=== PATIENT | female | born 1980 | race Caucasian/White ===

== ENCOUNTER 2018-10-29 20:27 | Emergency (ER) | payer OTHER ==
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
[2018-10-29] MEDS ORDERED: Iopamidol 755 Mg/ML 100 ML Bottle IVPUSH ONE (20:50)
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
[2018-10-29] MEDS ORDERED: Ketorolac 30 MG/ML SDV IVPUSH ONE (21:26)
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
[2018-10-29 21:52] LABS: CHLORIDE,CL 103 mmol/L (98-107); SODIUM,NA 140 mmol/L (136-145)
== END 2018-10-29 22:20 | disposition home or self-care (01) ==
LOC: MW.ED 20:27
DX: S00.93XA Contusion of unspecified part of head, initial encounter (principal); M25.511 Pain in right shoulder; M54.5 Low back pain; M54.2 Cervicalgia; V89.2XXA Person injured in unspecified motor-vehicle accident, traffic, initial encounter
CPT/HCPCS: 36415; 70450; 71260; 72125; 72128; 72131; 73030; 74177; 80053; 82553; 84484; 85025; 93005; 96374; 99284; J1885; Q9967

== ENCOUNTER 2020-01-08 20:00 | Emergency (ER) | payer MEDICAID ==
[2020-01-08] MEDS ORDERED: Sodium Chloride 0.9% 10 ML Syringe FLUSH PRN (20:18)
[2020-01-08] MEDS ORDERED: Sodium Chloride 0.9% 2.5 ML Syringe FLUSH PRN (20:18)
[2020-01-08] MEDS ORDERED: Adenosine 6 MG/2 ML SDV IVPUSH ONE ×2 (20:32→20:33)
[2020-01-08] MEDS ORDERED: Metoprolol Tartrate 50 MG Tab PO ONE (20:35)
--- NOTE | 2020-01-08 20:35 | EDM.PDOC ---
ED HPI GENERAL MEDICAL PROBLEM - General Stated Complaint: CHEST PAIN Time Seen by Provider: 01/08/20 20:07 Source of Information: Reports: Patient History Limitations: Reports: No Limitations - History of Present Illness INITIAL COMMENTS - FREE TEXT/NARRATIVE: Presents reporting palpitations. States that she had just finished playing softball had stopped at a restaurant for dinner. Sudden onset of fluttering in her chest and then palpitations. Accompanied by a mild left chest pain. She states that over the last 4 years she has had numerous episodes of palpitations usually short-lived. She has had 4 or 5 occasions when the episodes precipitated chest pain. All of her episodes resolved without intervention in 5 to 10 minutes. She has never sought medical evaluation. The patient states that she drinks quite a bit of caffeine in a day including for a four-shot espresso, coffee and diet Pepsi throughout the day. [id number] smoking history. 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 Denies any other medical problems except obesity. - Related Data Allergies Allergy/AdvReac Type Severity Reaction Status Date / Time No Known Allergies Allergy Verified 10/29/18 21:01 Home Meds: Home Meds Metoprolol Succinate [Toprol XL 50mg] 50 mg PO DAILY #30 tab.er 01/08/20 [Rx] Past Medical History - Past Health History Medical/Surgical History: Denies Medical/Surgical History Psychiatric History: Reports: None Hematologic History: Reports: None Immunologic History: Reports: None Oncologic (Cancer) History: Reports: None - Infectious Disease History Infectious Disease History: Reports: None - Past Surgical History Head Surgeries/Procedures: Reports: None Social & Family History - Family History Family Medical History: Noncontributory - Caffeine Use Caffeine Use: Reports: Coffee ED ROS GENERAL - Review of Systems Review Of Systems: Comprehensive ROS is negative, except as noted in HPI. ED EXAM, GENERAL - Physical Exam Exam: See Below Exam Limited By: No Limitations General Appearance: Alert, Mild Distress (Due to symptoms) Ears: Normal External Exam Nose: Normal Inspection Throat/Mouth: Normal Inspection Head: Atraumatic, Normocephalic Neck: Normal Inspection Respiratory/Chest: No Respiratory Distress, Lungs Clear, Normal Breath Sounds Cardiovascular: Normal Peripheral Pulses, No Murmur, Tachycardia, Other (Regular ) GI/Abdominal: Soft Back Exam: Normal Inspection Extremities: Normal Inspection Neurological: Alert, Oriented, Normal Cognition Psychiatric: Normal Affect, Normal Mood, Other (Chatty, pleasent) Skin Exam: Warm, Dry, Intact, Normal Color, No Rash Lymphatic: No Adenopathy Course - Orders/Labs/Meds Orders: Active Orders 24 hr Category Date Time Status Cardiac Monitoring [RC] . DIRECTED Care 01/08/20 20:18 Active EKG Documentation Completion [RC] STAT Care 01/08/20 20:18 Active Pulse Oximetry [RC] ASDIRECTED Care 01/08/20 20:18 Active CXR [Chest 1V Frontal] [CR] Stat Exams 01/08/20 20:19 Stop Req COMPREHENSIVE METABOLIC PN,CMP [CHEM] Stat Lab 01/08/20 20:05 Received TROPONIN I [CHEM] Stat Lab 01/08/20 20:05 Received Sodium Chloride 0.9% [Saline Flush] Med 01/08/20 20:18 Active 10 ml FLUSH ASDIRECTED PRN Sodium Chloride 0.9% [Saline Flush] Med 01/08/20 20:18 Active 2.5 ml FLUSH ASDIRECTED PRN Saline Lock Insert [OM.PC] Stat Oth 01/08/20 20:18 Ordered Medication Orders Sodium Chloride (Saline Flush) 10 ml FLUSH ASDIRECTED PRN PRN Reason: Keep Vein Open Sodium Chloride (Saline Flush) 2.5 ml FLUSH ASDIRECTED PRN PRN Reason: Keep Vein Open Labs: Laboratory Tests 01/08/20 Range/Units 20:05 WBC 11.80 H (4.0-11.0) K/uL RBC 5.06 (4.30-5.90) M/uL Hgb 15.4 (12.0-16.0) g/dL Hct 44.5 (36.0-46.0) % MCV 87.9 (80.0-98.0) fL MCH 30.4 (27.0-32.0) pg MCHC 34.6 (31.0-37.0) g/dL RDW Std Deviation 44.1 (28.0-62.0) fl RDW Coeff of Simona 14 (11.0-15.0) % Plt Count 324 (150-400) K/uL MPV 9.10 (7.40-12.00) fL Neut % (Auto) 57.5 (48.0-80.0) % Lymph % (Auto) 32.0 (16.0-40.0) % Porter % (Auto) 6.8 (0.0-15.0) % Eos % (Auto) 3.3 (0.0-7.0) % Baso % (Auto) 0.4 (0.0-1.5) % Neut # (Auto) 6.8 H (1.4-5.7) K/uL Lymph # (Auto) 3.8 H (0.6-2.4) K/uL Porter # (Auto) 0.8 (0.0-0.8) K/uL Eos # (Auto) 0.4 (0.0-0.7) K/uL Baso # (Auto) 0.1 (0.0-0.1) K/uL Nucleated RBC % 0.0 /100WBC Nucleated RBCs # 0 K/uL Meds: Medications Generic Name Dose Route Start Last Admin Trade Name Freq PRN Reason Stop Dose Admin Sodium Chloride 10 ml 01/08/20 20:18 Saline Flush FLUSH ASDIRECTED PRN Keep Vein Open Sodium Chloride 2.5 ml 01/08/20 20:18 Saline Flush FLUSH ASDIRECTED PRN Keep Vein Open - Re-Assessments/Exams Free Text/Narrative Re-Assessment/Exam: 01/08/20 21:09 SVT was easily ablated with 12 mg of IV adenosine. Chest pain resolved. No recurrence of symptoms. Normal sinus rhythm without ectopy or morphologic changes Departure - Departure Time of Disposition: 21:10 Disposition: Home, Self-Care 01 Condition: Good Clinical Impression: SVT (supraventricular tachycardia) Referrals: Royal Conn MD [Physician] - Additional Instructions: The following information is given to patients seen in the emergency department who are being discharged to home. This information is to outline your options for follow-up care. We provide all patients seen in our emergency department with a follow-up referral. The need for follow-up, as well as the timing and circumstances, are variable depending upon the specifics of your emergency department visit. If you don't have a primary care physician on staff, we will provide you with a referral. We always advise you to contact your personal physician following an emergency department visit to inform them of the circumstance of the visit and for follow-up with them and/or the need for any referrals to a consulting specialist. The emergency department will also refer you to a specialist when appropriate. This referral assures that you have the opportunity for follow-up care with a specialist. All of these measure are taken in an effort to provide you with optimal care, which includes your follow-up. Under all circumstances we always encourage you to contact your private physician who remains a resource for coordinating your care. When calling for follow-up care, please make the office aware that this follow-up is from your recent emergency room visit. If for any reason you are refused follow-up, please contact the [facility] Emergency Department at and asked to speak to the emergency department charge nurse. 1. Referral has been put into Dr. Senia MD, Cardiology (Goes by Dr. Spears). Please call his office in the am to schedule your appointment. Tell his office that you have been seen in the ER and a referral has been sent. 2. Take your medication once daily starting tomorrow. This medication can cause fatigue and dizziness when you first start taking it. In addition, your heart rate will likely run lower. 3. You must cut down on caffeine and then wean off completely. 4. Work on quitting smoking. 5. You will need to establish care with a primary provider. In [facility] or [facility]. [place] or [place] are other options. 6. If your palpitating and rapid heart beat recur, try holding your breath, bearing down like having a bowel movement or coughing. Sometimes this will slow down the heart rate naturally. 7. Return promptly to the ER for chest pain, shortness of breath or other concerning symptoms. - My Orders Last 24 Hours: My Active Orders 01/08/20 20:05 COMPREHENSIVE METABOLIC PN,CMP [CHEM] Stat TROPONIN I [CHEM] Stat 01/08/20 20:18 Cardiac Monitoring [RC] . DIRECTED EKG Documentation Completion [RC] STAT Pulse Oximetry [RC] ASDIRECTED Sodium Chloride 0.9% [Saline Flush] 10 ml FLUSH ASDIRECTED PRN Sodium Chloride 0.9% [Saline Flush] 2.5 ml FLUSH ASDIRECTED PRN Saline Lock Insert [OM.PC] Stat 01/08/20 20:19 CXR [Chest 1V Frontal] [CR] Stat - Assessment/Plan Last 24 Hours: My Active Orders 01/08/20 20:05 COMPREHENSIVE METABOLIC PN,CMP [CHEM] Stat TROPONIN I [CHEM] Stat 01/08/20 20:18 Cardiac Monitoring [RC] . DIRECTED EKG Documentation Completion [RC] STAT Pulse Oximetry [RC] ASDIRECTED Sodium Chloride 0.9% [Saline Flush] 10 ml FLUSH ASDIRECTED PRN Sodium Chloride 0.9% [Saline Flush] 2.5 ml FLUSH ASDIRECTED PRN Saline Lock Insert [OM.PC] Stat 01/08/20 20:19 CXR [Chest 1V Frontal] [CR] Stat
[2020-01-08 20:43] LABS: BLOOD UREA NITROGEN,BUN 26 mg/dL (7.0-18.0); CARBON DIOXIDE,CO2 25.5 mmol/L (21.0-32.0); CHLORIDE,CL 102 mmol/L (98-107); GLUCOSE RANDOM 109 mg/dL (74-106); POTASSIUM,K 4.1 mmol/L (3.5-5.1); SODIUM,NA 138 mmol/L (136-145)
[2020-01-08] MEDS ORDERED: Sodium Chloride 0.9% 1,000 ML IV ONE (20:56)
--- NOTE | 2020-01-08 22:23 | PCM.SN.2 ---
- Free Text/Narrative Note: Upon review of the patients seen today in the emergency department, I discovered that my name was attached to this patient care episode. I was not involved with this patient's emergency department encounter. The patient was seen independently by the nurse practitioner Madalyn Lee. My name is attached to the chart in error. I did not have any [id number] contact with the patient, nor was I involved with the medical decision making, treatment planning, or discharge planning. PRESCHOOL EDUCATION DIRECTOR Madalyn Lee saw this patient as a licensed independent practitioner and did not request my assistance with managing the case.
== END 2020-01-08 21:35 | disposition home or self-care (01) ==
LOC: MW.ED 20:00
DX: I47.1 Supraventricular tachycardia (principal); F17.210 Nicotine dependence, cigarettes, uncomplicated; Z79.899 Other long term (current) drug therapy
CPT/HCPCS: 36415; 80053; 84484; 85025; 96361; 96374; 99285; A9270; J0153; J7030; 99284

== ENCOUNTER 2021-04-16 08:09 | Inpatient (IN) | payer MEDICAID ==
[2021-04-16] MEDS ORDERED: Sodium Chloride 0.9% 10 ML Syringe FLUSH PRN (08:38)
[2021-04-16] MEDS ORDERED: Sodium Chloride 0.9% 2.5 ML Syringe FLUSH PRN ×2 (08:38→13:47)
[2021-04-16] MEDS ORDERED: ceFAZolin 1 GM in Premix Bag 1 BAG IV ONE (08:39)
--- NOTE | 2021-04-16 08:42 | EDM.PDOC ---
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 She had pain and redness the next day and then she has gradually increased steady gradual increased pain swelling redness and heat in the right upper extremity from the upper arm to the wrist. There is edema in the hand. She feels a little lightheaded and sometimes feels feverish at home. She says she is not and she had a menstrual period with no sexual contact since that. Review of systems: As per history of present illness and below otherwise all systems reviewed and negative. Past medical history: As per history of present illness and as reviewed below otherwise noncontributory. Surgical history: As per history of present illness and as reviewed below otherwise noncontributory. Social history: No reported history of drug or alcohol abuse. Family history: As per history of present illness and as reviewed below otherwise noncontributory. Physical exam: Constitutional - well developed, well-nourished and in no acute distress HEENT - normocephalic, no evidence of trauma - external nose and mouth normal - no mass in neck and no JVD - mucosae moist EYES - full EOM, PERRL, no icterus - no evidence of inflammation, injection, or drainage Respiratory - no respiratory distress, equal bilateral expansion, lungs clear to auscultation and no abnormal lung sounds Cardiovascular -capillary refill brisk in the digits of the right upper extremity and they are warm and pink. Regular Rhythm with S1 and S2 appreciated and no murmur, gallop or rub. GI - abdomen soft without distension or organomegaly - normal bowel sounds - no guard or rebound Musculoskeletal marked swelling of the right upper extremity from the upper arm to the wrist with moderate edema of the right hand no gross deformity of long bones or joints - no tenderness, swelling or edema Neurologic -motor sensory exam intact in the distal right upper extremity. Alert and oriented times four - CN II-XII grossly intact - motor sensory and coordination symmetrically normal Psychiatric - appropriate mood and affect with normal thought content Hematologic - No petechiae or purpura - mucosa appropriate color and sclera not pale - normal nail bed color and refill Integument -warmth and heat in the right upper extremity in the areas of swelling from the upper arm to the wrist no rash or evidence of trauma - normal turgor Diagnostics: [] Therapeutics: [] Impression: [] Plan: [] Definitive disposition and diagnosis as appropriate pending reevaluation and review of above. 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: Psychiatric History: Reports: None Hematologic History: Reports: None Immunologic History: Reports: None Oncologic (Cancer) History: Reports: None - Infectious Disease History Infectious Disease History: Reports: None - Past Surgical History Head Surgeries/Procedures: Reports: None Female Surgical History: Reports: D&C Social & Family History - Family History Family Medical History: No Pertinent Family History - Tobacco Use Second Hand Smoke Exposure: No - Caffeine Use Caffeine Use: Reports: None - Recreational Drug Use Recreational Drug Use: Yes Drug Use in Last 12 Months: Yes Recreational Drug Type: Reports: Marijuana/Hashish, Methamphetamine ED ROS GENERAL - Review of Systems Review Of Systems: Comprehensive ROS is negative, except as noted in HPI. ED EXAM, SKIN/RASH Exam: See Below Text/Narrative:: Physical exam is in the HPI Course - Vital Signs Text/Narrative:: 30 a.m. there is a hematoma at the site of the venipuncture. It is perhaps becoming an abscess. Patient understands that the best medicine for staph coverage would be vancomycin but must be given parenterally. She would rather switch to Bactrim or doxy for staph coverage and go home. She insists she will come back immediately if she gets worse or within 2 days if she does not improve. She also has no signs of compartment syndrome at this time and I explained the signs for compartment syndrome and that she needs immediate return if that happens. I also explained to this patient that if she had a compartment syndrome where she needed an abscess drain it was contiguous to the vessel in her forearm she would probably need to see a hand surgeon and that means he might be going to [place]. The patient also admits that she uses methamphetamine for a long time and is psychologically dependent. However she has never been addicted to sedatives or narcotics. She needed hydromorphone to get relief of her pain here and will be prescribed oxycodone and a small judicious amount upon discharge. Last Recorded V/S: Last Vital Signs Temp 36.4 C 04/16/21 08:25 Pulse 103 H 04/16/21 08:25 Resp 20 04/16/21 08:25 BP 117/71 04/16/21 08:25 Pulse Ox 98 04/16/21 08:25 - Orders/Labs/Meds Orders: Active Orders 24 hr Category Date Time Status CULTURE BLOOD [BC] Stat Lab 04/16/21 08:57 Received CULTURE BLOOD [BC] Stat Lab 04/16/21 09:16 Received Sodium Chloride 0.9% [Saline Flush] Med 04/16/21 08:38 Active 10 ml FLUSH ASDIRECTED PRN Sodium Chloride 0.9% [Saline Flush] Med 04/16/21 08:38 Active 2.5 ml FLUSH ASDIRECTED PRN Blood Culture x2 Reflex Set [OM.PC] Stat Oth 04/16/21 08:38 Ordered Saline Lock Insert [OM.PC] Stat Oth 04/16/21 08:38 Ordered Medication Orders Sodium Chloride (Sodium Chloride 0.9% 10 Ml Syringe) 10 ml FLUSH ASDIRECTED PRN PRN Reason: Keep Vein Open Last Admin: 04/16/21 09:07 Dose: 10 ml Documented by: JAVIER Sodium Chloride (Sodium Chloride 0.9% 2.5 Ml Syringe) 2.5 ml FLUSH ASDIRECTED PRN PRN Reason: Keep Vein Open Last Admin: 04/16/21 08:44 Dose: 2.5 ml Documented by: JAVIER Labs: Laboratory Tests 04/16/21 04/16/21 Range/Units 08:57 08:57 WBC 23.88 H (4.0-11.0) K/uL RBC 4.80 (4.30-5.90) M/uL Hgb 14.7 (12.0-16.0) g/dL Hct 41.8 (36.0-46.0) % MCV 87.1 (80.0-98.0) fL MCH 30.6 (27.0-32.0) pg MCHC 35.2 (31.0-37.0) g/dL RDW Std Deviation 42.0 (28.0-62.0) fl RDW Coeff of Simona 13 (11.0-15.0) % Plt Count 328 (150-400) K/uL MPV 9.10 (7.40-12.00) fL Neut % (Auto) 85.1 H (48.0-80.0) % Lymph % (Auto) 8.1 L (16.0-40.0) % [place] % (Auto) 6.2 (0.0-15.0) % Eos % (Auto) 0.4 (0.0-7.0) % Baso % (Auto) 0.2 (0.0-1.5) % Neut # (Auto) 20.3 H (1.4-5.7) K/uL Lymph # (Auto) 1.9 (0.6-2.4) K/uL [place] # (Auto) 1.5 H (0.0-0.8) K/uL Eos # (Auto) 0.1 (0.0-0.7) K/uL Baso # (Auto) 0.0 (0.0-0.1) K/uL Nucleated RBC % 0.0 /100WBC Nucleated RBCs # 0 K/uL Sodium 134 L (136-145) mmol/L Potassium 3.5 (3.5-5.1) mmol/L Chloride 101 (98-107) mmol/L Carbon Dioxide 24.3 (21.0-32.0) mmol/L BUN 11 (7.0-18.0) mg/dL Creatinine 0.9 (0.6-1.0) mg/dL Est Cr Clr Drug Dosing 73.27 mL/min Estimated GFR (MDRD) > 60.0 ml/min Glucose 116 H (74-106) mg/dL Calcium 9.0 (8.5-10.1) mg/dL Meds: Medications Generic Name Dose Route Start Last Admin Trade Name Angela PRN Reason Stop Dose Admin Sodium Chloride 10 ml 04/16/21 08:38 04/16/21 09:07 Sodium Chloride 0.9% 10 Ml Syringe FLUSH 10 ml ASDIRECTED PRN Administration Keep Vein Open Sodium Chloride 2.5 ml 04/16/21 08:38 04/16/21 08:44 Sodium Chloride 0.9% 2.5 Ml Syringe FLUSH 2.5 ml ASDIRECTED PRN Administration Keep Vein Open Discontinued Medications Generic Name Dose Route Start Last Admin Trade Name Angela PRN Reason Stop Dose Admin Acetaminophen 650 mg 04/16/21 09:05 04/16/21 09:11 Acetaminophen 325 Mg Tab PO 04/16/21 09:06 650 mg NOW ONE Administration Hydromorphone HCl 1 mg 04/16/21 09:50 04/16/21 10:08 Hydromorphone 1 Mg/Ml Syringe IVPUSH 04/16/21 09:51 1 mg ONETIME ONE Administration Cefazolin Sodium/Dextrose 1 gm 50 mls @ 100 mls/hr 04/16/21 08:39 04/16/21 09:07 / Premix IV 04/16/21 09:08 100 mls/hr ONETIME ONE Administration Vancomycin HCl 1,000 mg/ 100 mls @ 100 mls/hr 04/16/21 08:38 04/16/21 09:51 Sodium Chloride IV 04/16/21 09:37 Not Given ONETIME ONE Vancomycin HCl 1 gm/ Sodium 250 mls @ 250 mls/hr 04/16/21 09:30 04/16/21 09:41 Chloride IV 04/16/21 10:29 250 mls/hr ONETIME ONE Administration Tramadol HCl 50 mg 04/16/21 09:05 04/16/21 09:11 Tramadol 50 Mg Tab PO 04/16/21 09:06 50 mg ONETIME ONE Administration Departure - Departure Time of Disposition: 10:38 Disposition: Home, Self-Care 01 Condition: Good Clinical Impression: Cellulitis, Infected hematoma - Discharge Information Instructions: Cellulitis, Adult, Acute Compartment Syndrome Referrals: PCP,None [Primary Care Provider] - Forms: ED Department Discharge Additional Instructions: Admission was considered and offered. If he develops signs of compartment syndrome as we discussed including numbness pale color weakness in the distal hand or pain with movement of the hand tendons and fingers that you need to return immediately. If you feel improved in 2 days you need to return. If you get worse he needs to return immediately. You not getting my first choice for staphylococcal coverage because that has to be given in an IV or shot. I replaced that with Bactrim or doxycycline and continue cephalexin for the gram-positive's other than staph aureus. [facility] [address] [place] [id number] [address] The following information is given to patients seen in the emergency department who are being discharged to home. This information is to outline your options for follow-up care. We provide all patients seen in our emergency department with a follow-up referral. The need for follow-up, as well as the timing and circumstances, are variable depending upon the specifics of your emergency department visit. If you don't have a primary care physician on staff, we will provide you with a referral. We always advise you to contact your personal physician following an emergency department visit to inform them of the circumstance of the visit and for follow-up with them and/or the need for any referrals to a consulting specialist. The emergency department will also refer you to a specialist when appropriate. This referral assures that you have the opportunity for follow-up care with a specialist. All of these measure are taken in an effort to provide you with optimal care, which includes your follow-up. Under all circumstances we always encourage you to contact your private physician who remains a resource for coordinating your care. When calling for follow-up care, please make the office aware that this follow-up is from your recent emergency room visit. If for any reason you are refused follow-up, please contact the [facility] Emergency Department at and asked to speak to the emergency department charge nurse. Sepsis Event Note (ED) - Evaluation Sepsis Screening Result: No Definite Risk - Focused Exam Vital Signs: Vital Signs Temp Pulse Resp BP Pulse Ox 04/16/21 08:25 36.4 C 103 H 20 117/71 98 - My Orders Last 24 Hours: My Active Orders 04/16/21 08:38 Sodium Chloride 0.9% [Saline Flush] 10 ml FLUSH ASDIRECTED PRN Sodium Chloride 0.9% [Saline Flush] 2.5 ml FLUSH ASDIRECTED PRN Blood Culture x2 Reflex Set [OM.PC] Stat Saline Lock Insert [OM.PC] Stat 04/16/21 08:57 CULTURE BLOOD [BC] Stat 04/16/21 09:16 CULTURE BLOOD [BC] Stat - Assessment/Plan Last 24 Hours: My Active Orders 04/16/21 08:38 Sodium Chloride 0.9% [Saline Flush] 10 ml FLUSH ASDIRECTED PRN Sodium Chloride 0.9% [Saline Flush] 2.5 ml FLUSH ASDIRECTED PRN Blood Culture x2 Reflex Set [OM.PC] Stat Saline Lock Insert [OM.PC] Stat 04/16/21 08:57 CULTURE BLOOD [BC] Stat 04/16/21 09:16 CULTURE BLOOD [BC] Stat
[2021-04-16] MEDS ORDERED: traMADol 50 MG Tab PO ONE (09:05)
[2021-04-16] MEDS ORDERED: Acetaminophen 325 MG Tab PO ONE (09:05)
[2021-04-16 09:26] LABS: BLOOD UREA NITROGEN,BUN 11 mg/dL (7.0-18.0); CARBON DIOXIDE,CO2 24.3 mmol/L (21.0-32.0); CHLORIDE,CL 101 mmol/L (98-107); GLUCOSE RANDOM 116 mg/dL (74-106); POTASSIUM,K 3.5 mmol/L (3.5-5.1); SODIUM,NA 134 mmol/L (136-145)
[2021-04-16] MEDS ORDERED: HYDROmorphone 1 MG/ML Syringe IVPUSH ONE (09:50)
--- NOTE | 2021-04-16 10:25 | US ---
INDICATION: Small 1 red painful right arm TECHNIQUE: Ultrasound venous duplex upper right extremity. Compression venous exam was performed using irving-scale, color Doppler, and spectral Doppler imaging. COMPARISON: None. FINDINGS: The internal jugular, axillary, radial and ulnar veins are compressible without evidence of obvious deep venous thrombosis. Within the subcutaneous tissues of the forearm there is marked edema with demonstration of a compressible abscess versus hematoma adjacent to the proximal forearm. IMPRESSION: No definite evidence of deep venous thrombosis. Demonstration of marked edema and questionable development of abscess versus hematoma within the proximal forearm soft tissues. Correlate with history of clinical symptoms and prior venipuncture if there remains persisting clinical concern. Dictated by Arsh Gamez MD @ 04/16/2021 10:24:37 AM (Electronically Signed)
--- NOTE | 2021-04-16 12:36 | PCM.SN.2 ---
- Free Text/Narrative Note: Asked by Dr. Hinojosa, per phone call, to review ultrasound study from today.
--- NOTE | 2021-04-16 13:01 | EDM.PDOC ---
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 She had pain and redness the next day and then she has gradually increased steady gradual increased pain swelling redness and heat in the right upper extremity from the upper arm to the wrist. There is edema in the hand. She feels a little lightheaded and sometimes feels feverish at home. She says she is not and she had a menstrual period with no sexual contact since that. Review of systems: As per history of present illness and below otherwise all systems reviewed and negative. Past medical history: As per history of present illness and as reviewed below otherwise noncontributory. Surgical history: As per history of present illness and as reviewed below otherwise noncontributory. Social history: No reported history of drug or alcohol abuse. Family history: As per history of present illness and as reviewed below otherwise noncontributory. Physical exam: Constitutional - well developed, well-nourished and in no acute distress HEENT - normocephalic, no evidence of trauma - external nose and mouth normal - no mass in neck and no JVD - mucosae moist EYES - full EOM, PERRL, no icterus - no evidence of inflammation, injection, or drainage Respiratory - no respiratory distress, equal bilateral expansion, lungs clear to auscultation and no abnormal lung sounds Cardiovascular -capillary refill brisk in the digits of the right upper extremity and they are warm and pink. Regular Rhythm with S1 and S2 appreciated and no murmur, gallop or rub. GI - abdomen soft without distension or organomegaly - normal bowel sounds - no guard or rebound Musculoskeletal marked swelling of the right upper extremity from the upper arm to the wrist with moderate edema of the right hand no gross deformity of long bones or joints - no tenderness, swelling or edema Neurologic -motor sensory exam intact in the distal right upper extremity. Alert and oriented times four - CN II-XII grossly intact - motor sensory and coordination symmetrically normal Psychiatric - appropriate mood and affect with normal thought content Hematologic - No petechiae or purpura - mucosa appropriate color and sclera not pale - normal nail bed color and refill Integument -warmth and heat in the right upper extremity in the areas of swelling from the upper arm to the wrist no rash or evidence of trauma - normal turgor Diagnostics: [] Therapeutics: [] Impression: [] Plan: [] Definitive disposition and diagnosis as appropriate pending reevaluation and review of above. 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/Surgical History [employer] History: Reports: Psychiatric History: Reports: None Hematologic History: Reports: None Immunologic History: Reports: None Oncologic (Cancer) History: Reports: None - Infectious Disease History Infectious Disease History: Reports: None - Past Surgical History Head Surgeries/Procedures: Reports: None Female Surgical History: Reports: D&C Social & Family History - Family History Family Medical History: No Pertinent Family History - Tobacco Use Second Hand Smoke Exposure: No - Caffeine Use Caffeine Use: Reports: None - Recreational Drug Use Recreational Drug Use: Yes Drug Use in Last 12 Months: Yes Recreational Drug Type: Reports: Marijuana/Hashish, Methamphetamine ED ROS GENERAL - Review of Systems Review Of Systems: Comprehensive ROS is negative, except as noted in HPI. ED EXAM, GENERAL - Physical Exam Exam: See Below Free Text/Narrative:: History of present illness: [] This patient is used methamphetamine for 23 years and says she is ps ychologically but probably not physically dependent and injected 3 days ago into the right antecubitum. She had pain and redness the next day and then she has gradually increased steady gradual increased pain swelling redness and heat in the right upper extremity from the upper arm to the wrist. There is edema in the hand. She feels a little lightheaded and sometimes feels feverish at home. She says she is not and she had a menstrual period with no sexual contact since that. Review of systems: As per history of present illness and below otherwise all systems reviewed and negative. Past medical history: As per history of present illness and as reviewed below otherwise noncontributory. Surgical history: As per history of present illness and as reviewed below otherwise noncon tributory. Social history: No reported history of drug or alcohol abuse. Family history: As per history of present illness and as reviewed below otherwise noncontributory. Physical exam: Constitutional - well developed, well-nourished and in no acute distress HEENT - normocephalic, no evidence of trauma - external nose and mouth normal - no mass in neck and no JVD - mucosae moist EYES - full EOM, PERRL, no icterus - no evidence of inflammation, injection, or drainage Respiratory - no respiratory distress, equal bilateral expansion, lungs clear to auscultation and no abnormal lung sounds Cardiovascular -capillary refill brisk in the digits of the right upper extremity and they are warm and pink. Regular Rhythm with S1 and S2 appreciated and no murmur, gallop or rub. GI - abdomen soft without distension or organomegaly - normal bowel sounds - no guard or rebound Musculoskeletal marked swelling of the right upper extremity from the upper arm to the wrist with moderate edema of the right hand no gross deformity of long bones or joints - no tenderness, swelling or edema Neurologic -motor sensory exam intact in the distal right upper extremity. Alert and oriented times four - CN II-XII grossly intact - motor sensory and coordination symmetrically normal Psychiatric - appropriate mood and affect with normal thought content Hematologic - No petechiae or purpura - mucosa appropriate color and sclera not pale - normal nail bed color and refill Integument -warmth and heat in the right upper extremity in the areas of swelling from the upper arm to the wrist no rash or evidence of trauma - normal turgor Diagnostics: [] Therapeutics: [] Impression: [] Plan: [] Definitive disposition and diagnosis as appropriate pending reevaluation and review of above. Course - Vital Signs Text/Narrative:: 1300 hrs. the patient return after talking to a nurse friend of hers who recommend admission. I had Dr. Vazquez review the ultrasound and he and I think this patient might benefit from intravenous antibiotics. Is she needs a dissection of the forearm she probably would have to go to a hand surgeon but at this point is not certain that that is necessary. Discussed with Dr. Weber who most graciously agreed to admit the patient and try conservative therapy here in the local emergency in the hospital. Discussed with the supervisor carbon electrodes who will get her a bed and avoid a second ER visit. Last Recorded V/S: Last Vital Signs Temp 36.4 C 04/16/21 08:25 Pulse 97 04/16/21 11:19 Resp 22 H 04/16/21 11:19 BP 139/92 H 04/16/21 11:19 Pulse Ox 98 04/16/21 11:19 - Orders/Labs/Meds Orders: Active Orders 24 hr Category Date Time Status CULTURE BLOOD [BC] Stat Lab 04/16/21 08:57 Received CULTURE BLOOD [BC] Stat Lab 04/16/21 09:16 Received Blood Culture x2 Reflex Set [OM.PC] Stat Oth 04/16/21 08:38 Ordered Saline Lock Insert [OM.PC] Stat Oth 04/16/21 08:38 Ordered Labs: Laboratory Tests 04/16/21 04/16/21 Range/Units 08:57 08:57 WBC 23.88 H (4.0-11.0) K/uL RBC 4.80 (4.30-5.90) M/uL Hgb 14.7 (12.0-16.0) g/dL Hct 41.8 (36.0-46.0) % MCV 87.1 (80.0-98.0) fL MCH 30.6 (27.0-32.0) pg MCHC 35.2 (31.0-37.0) g/dL RDW Std Deviation 42.0 (28.0-62.0) fl RDW Coeff of Simona 13 (11.0-15.0) % Plt Count 328 (150-400) K/uL MPV 9.10 (7.40-12.00) fL Neut % (Auto) 85.1 H (48.0-80.0) % Lymph % (Auto) 8.1 L (16.0-40.0) % [place] % (Auto) 6.2 (0.0-15.0) % Eos % (Auto) 0.4 (0.0-7.0) % Baso % (Auto) 0.2 (0.0-1.5) % Neut # (Auto) 20.3 H (1.4-5.7) K/uL Lymph # (Auto) 1.9 (0.6-2.4) K/uL [place] # (Auto) 1.5 H (0.0-0.8) K/uL Eos # (Auto) 0.1 (0.0-0.7) K/uL Baso # (Auto) 0.0 (0.0-0.1) K/uL Nucleated RBC % 0.0 /100WBC Nucleated RBCs # 0 K/uL Sodium 134 L (136-145) mmol/L Potassium 3.5 (3.5-5.1) mmol/L Chloride 101 (98-107) mmol/L Carbon Dioxide 24.3 (21.0-32.0) mmol/L BUN 11 (7.0-18.0) mg/dL Creatinine 0.9 (0.6-1.0) mg/dL Est Cr Clr Drug Dosing 73.27 mL/min Estimated GFR (MDRD) > 60.0 ml/min Glucose 116 H (74-106) mg/dL Calcium 9.0 (8.5-10.1) mg/dL Meds: Medications Discontinued Medications Generic Name Dose Route Start Last Admin Trade Name Angela PRN Reason Stop Dose Admin Acetaminophen 650 mg 04/16/21 09:05 04/16/21 09:11 Acetaminophen 325 Mg Tab PO 04/16/21 09:06 650 mg NOW ONE Administration Hydromorphone HCl 1 mg 04/16/21 09:50 04/16/21 10:08 Hydromorphone 1 Mg/Ml Syringe IVPUSH 04/16/21 09:51 1 mg ONETIME ONE Administration Cefazolin Sodium/Dextrose 1 gm 50 mls @ 100 mls/hr 04/16/21 08:39 04/16/21 09:07 / Premix IV 04/16/21 09:08 100 mls/hr ONETIME ONE Administration Vancomycin HCl 1,000 mg/ 100 mls @ 100 mls/hr 04/16/21 08:38 04/16/21 09:51 Sodium Chloride IV 04/16/21 09:37 Not Given ONETIME ONE Vancomycin HCl 1 gm/ Sodium 250 mls @ 250 mls/hr 04/16/21 09:30 04/16/21 09:41 Chloride IV 04/16/21 10:29 250 mls/hr ONETIME ONE Administration Sodium Chloride 10 ml 04/16/21 08:38 04/16/21 09:07 Sodium Chloride 0.9% 10 Ml Syringe FLUSH 10 ml ASDIRECTED PRN Administration Keep Vein Open Sodium Chloride 2.5 ml 04/16/21 08:38 04/16/21 08:44 Sodium Chloride 0.9% 2.5 Ml Syringe FLUSH 2.5 ml ASDIRECTED PRN Administration Keep Vein Open Tramadol HCl 50 mg 04/16/21 09:05 04/16/21 09:11 Tramadol 50 Mg Tab PO 04/16/21 09:06 50 mg ONETIME ONE Administration Departure - Departure Time of Disposition: 13:00 Disposition: Admitted As Inpatient 64 Condition: Good Clinical Impression: Cellulitis, Infected hematoma - Discharge Information Prescriptions: Sulfamethoxazole/Trimethoprim [Bactrim Ds Tablet] 1 each PO BID 10 Days #20 tablet cephALEXin [Cephalexin] 500 mg PO BID 10 Days #20 capsule Acetaminophen/oxyCODONE [Percocet 325-5 MG] 1 - 2 each PO Q6H PRN #24 tab PRN Reason: Pain (Severe 7-10) Instructions: Cellulitis, Adult, Acute Compartment Syndrome Referrals: PCP,None [Primary Care Provider] - Forms: ED Department Discharge Additional Instructions: Admission was considered and offered. If he develops signs of compartment syndrome as we discussed including numbness pale color weakness in the distal hand or pain with movement of the hand tendons and fingers that you need to ret urn immediately. If you feel improved in 2 days you need to return. If you get worse he needs to return immediately. You not getting my first choice for staphylococcal coverage because that has to be given in an IV or shot. I replaced that with Bactrim or doxycycline and continue cephalexin for the gram-positive's other than staph aureus. [facility] - [facility] [address] [place] [id number] [id number] The following information is given to patients seen in the emergency department who are being discharged to home. This information is to outline your options for follow-up care. We provide all patients seen in our emergency department with a follow-up referral. The need for follow-up, as well as the timing and circumstances, are variable depending upon the specifics of your emergency department visit. If you don't have a primary care physician on staff, we will provide you with a referral. We always advise you to contact your personal physician following an emergency department visit to inform them of the circumstance of the visit and for follow-up with them and/or the need for any referrals to a consulting specialist. The emergency department will also refer you to a specialist when appropriate. This referral assures that you have the opportunity for follow-up care with a specialist. All of these measure are taken in an effort to provide you with optimal care, which includes your follow-up. Under all circumstances we always encourage you to contact your private physician who remains a resource for coordinating your care. When calling for follow-up care, please make the office aware that this follow-up is from your recent emergency room visit. If for any reason you are refused follow-up, please contact the [facility] Emergency Department at and asked to speak to the emergency department charge nurse. Sepsis Event Note (ED) - Evaluation Sepsis Screening Result: No Definite Risk - Focused Exam Vital Signs: Vital Signs Temp Pulse Resp BP Pulse Ox 04/16/21 11:19 97 22 H 139/92 H 98 04/16/21 08:25 36.4 C 103 H 20 117/71 98 - My Orders Last 24 Hours: My Active Orders 04/16/21 08:38 Blood Culture x2 Reflex Set [OM.PC] Stat Saline Lock Insert [OM.PC] Stat 04/16/21 08:57 CULTURE BLOOD [BC] Stat 04/16/21 09:16 CULTURE BLOOD [BC] Stat - Assessment/Plan Last 24 Hours: My Active Orders 04/16/21 08:38 Blood Culture x2 Reflex Set [OM.PC] Stat Saline Lock Insert [OM.PC] Stat 04/16/21 08:57 CULTURE BLOOD [BC] Stat 04/16/21 09:16 CULTURE BLOOD [BC] Stat
[2021-04-16] MEDS ORDERED: Ondansetron 4 MG/2 ML SDV IVPUSH PRN (13:47)
[2021-04-16] MEDS ORDERED: Lactated Ringers 1,000 ML IV ONE (13:52)
[2021-04-16] MEDS ORDERED: Morphine 2 MG/ML SYRINGE IVPUSH PRN (13:52)
--- NOTE | 2021-04-16 13:53 | PCM.HP.2 ---
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 She reports that approximately 3 days ago she injected into the right AC and new right away that she had missed a vein. She reports that 24 hours later she noticed redness warmth and tenderness to this area and this has then progressed significantly over the last 2 days to significant redness erythema and pain. She denies any joint pain of her elbow wrist or fingers and no shoulder pain. She reports no drainage. She reports fevers and chills and generalized malaise feeling. Denies any abdominal pain. Mild nausea no diarrhea or constipation. No black or bloody bowel movements. She reports most recent use of inhaled methamphetamine was this morning. She reports last time she injected was 3 days ago during this event. She denies any alcohol or tobacco use. In the ER leukocytosis noted at 23,000 platelets 328,000. BMP within normal limits. Ultrasound of the arm obtained no venous thrombosis noted demonstration of marked edema and questionable development of abscess versus hematoma within the proximal forearm soft tissues. Patient was treated with Ancef and vancomycin in the ER and then she left AGAINST MEDICAL ADVICE when asked regarding admission. She then went home and talked with a friend who encouraged her to be admitted. She returned and was directly admitted for cellulitis of the right arm. Dr. Vazquez was asked to review images at this time no abscess is noted to be drained and if there was an abscess she may need to be transferred for orthopedic surgery to perform this. But agreed she was in need of intravenous antibiotics. 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: Psychiatric History: Reports: None Hematologic History: Reports: None Immunologic History: Reports: None Oncologic (Cancer) History: Reports: None - Infectious Disease History Infectious Disease History: Reports: None - Past Surgical History Head Surgeries/Procedures: Reports: None Female Surgical History: Reports: D&C Social & Family History - Family History Family Medical History: No Pertinent Family History - Tobacco Use Tobacco Use Status *Q: Never Tobacco User Second Hand Smoke Exposure: No - Caffeine Use Caffeine Use: Reports: None - Alcohol Use Alcohol Use History: No - Recreational Drug Use Recreational Drug Use: Yes Drug Use in Last 12 Months: Yes Recreational Drug Type: Reports: Marijuana/Hashish, Methamphetamine Recreational Drug Use Frequency: Daily Recreational Drug Route: Reports: Inhaled, Intravenous - Living Situation & Occupation Living situation: Reports: with Family H&P Review of Systems - Review of Systems: Review Of Systems: See Below General: Reports: Fever, Chills, Malaise HEENT: Reports: No Symptoms. Denies: Headaches, Sinus Congestion, Sore Throat, Vertigo Pulmonary: Reports: No Symptoms. Denies: Shortness of Breath, Pleuritic Chest Pain, Cough Cardiovascular: Reports: No Symptoms. Denies: Chest Pain, Edema Gastrointestinal: Reports: Nausea. Denies: Abdominal Pain, Black Stool, Bloody Stool, Distension, Vomiting Genitourinary: Reports: No Symptoms. Denies: Dysuria, Frequency, Burning Musculoskeletal: Reports: Arm Pain (Right arm). Denies: Neck Pain Skin: Reports: Erythema Psychiatric: Reports: No Symptoms Neurological: Reports: No Symptoms Hematologic/Lymphatic: Reports: No Symptoms Immunologic: Reports: No Symptoms Exam - Exam Exam: See Below - Vital Signs Vital Signs: Last Vital Signs Temp 99.6 F 04/16/21 13:48 Pulse 103 H 04/16/21 13:48 Resp 22 H 04/16/21 13:48 BP 146/84 H 04/16/21 13:48 Pulse Ox 99 04/16/21 13:48 Weight: 131.542 kg - Exam Quality Assessment: DVT Prophylaxis. No: Supplemental Oxygen General: Alert, Oriented, Cooperative HEENT: Conjunctiva Clear, Mucosa Moist & [place], Pupils Equal Neck: Supple, Trachea Midline Lungs: Clear to Auscultation, Normal Respiratory Effort Cardiovascular: Regular Rate, Regular Rhythm GI/Abdominal Exam: Normal Bowel Sounds, Soft, Non-Tender Back Exam: Normal Inspection, Full Range of Motion Extremities: Normal Inspection, Arm Pain, Limited Range of Motion (Arm range of motion to the right is slightly admitted to swelling and pain but no joint pain to the elbow shoulder or wrist.), Redness (Significant erythema noted to right arm that is just proximal to the wrist and just distal to the shoulder does wrap around circumferentially with significant induration around injection site on lateral forearm just below AC. Induration spreads approximately 2 inches from injection site circumferen) Skin Alteration Location (Drawings Not To Scale): 1 - Significant induration noted around injection site approximate 2 to 2-1/2 inches circumferentially. Mild ecchymosis noted at injection site no drainage noted erythema extends distally from the shoulder to just proximal the wrist. Neuro Extensive - Mental Status: Alert, Oriented x3 Neuro Extensive - Motor, Sensory, Reflexes: CN II-XII Intact, Normal Gait Psychiatric: Alert, Normal Affect, Anxious, Other (Tearful when it comes to discussing recreational drug use. Reports she is attempting to get clean. Hoping she has not judged as addiction past has been hard.) - Patient Data Lab Results Last 24 hrs: Laboratory Results - last 24 hr 04/16/21 04/16/21 Range/Units 08:57 08:57 WBC 23.88 H (4.0-11.0) K/uL RBC 4.80 (4.30-5.90) M/uL Hgb 14.7 (12.0-16.0) g/dL Hct 41.8 (36.0-46.0) % MCV 87.1 (80.0-98.0) fL MCH 30.6 (27.0-32.0) pg MCHC 35.2 (31.0-37.0) g/dL RDW Std Deviation 42.0 (28.0-62.0) fl RDW Coeff of Simona 13 (11.0-15.0) % Plt Count 328 (150-400) K/uL MPV 9.10 (7.40-12.00) fL Neut % (Auto) 85.1 H (48.0-80.0) % Lymph % (Auto) 8.1 L (16.0-40.0) % [place] % (Auto) 6.2 (0.0-15.0) % Eos % (Auto) 0.4 (0.0-7.0) % Baso % (Auto) 0.2 (0.0-1.5) % Neut # (Auto) 20.3 H (1.4-5.7) K/uL Lymph # (Auto) 1.9 (0.6-2.4) K/uL [place] # (Auto) 1.5 H (0.0-0.8) K/uL Eos # (Auto) 0.1 (0.0-0.7) K/uL Baso # (Auto) 0.0 (0.0-0.1) K/uL Nucleated RBC % 0.0 /100WBC Nucleated RBCs # 0 K/uL Sodium 134 L (136-145) mmol/L Potassium 3.5 (3.5-5.1) mmol/L Chloride 101 (98-107) mmol/L Carbon Dioxide 24.3 (21.0-32.0) mmol/L BUN 11 (7.0-18.0) mg/dL Creatinine 0.9 (0.6-1.0) mg/dL Est Cr Clr Drug Dosing 73.27 mL/min Estimated GFR (MDRD) > 60.0 ml/min Glucose 116 H (74-106) mg/dL Calcium 9.0 (8.5-10.1) mg/dL Result Diagrams: 04/16/21 08:57 04/16/21 08:57 Sepsis Event Note - Evaluation Sepsis Screening Result: No Definite Risk Possible Source of Sepsis: Skin/Soft Tissue - Focused Exam Vital Signs: Vital Signs Temp Pulse Resp BP BP Pulse Ox 04/16/21 13:48 99.6 F 103 H 22 H 146/84 H 99 04/16/21 11:19 97 22 H 139/92 H 98 04/16/21 08:25 97.5 F 103 H 20 117/71 98 Pulse Description: 2+ Normal Peripheral Pulse Location: Brachial Skin Exam (Focused Sepsis): Normal Turgor Date Exam was Performed: 04/16/21 Time Exam was Performed: 14:30 - Problem List (1) Sepsis SNOMED Code(s): 69201335 ICD Code: A41.9 - SEPSIS, UNSPECIFIED ORGANISM Status: Acute Current Visit: Yes Qualifiers: Sepsis acute organ dysfunction status: without acute organ dysfunction (2) Cellulitis of arm, right SNOMED Code(s): 365761428 ICD Code: L03.113 - CELLULITIS OF RIGHT UPPER LIMB Status: Acute Current Visit: Yes (3) IVDU (intravenous drug user) SNOMED Code(s): 325473218 ICD Code: F19.90 - OTHER PSYCHOACTIVE SUBSTANCE USE, UNSPECIFIED, UNCOMPLICATED Status: Chronic Current Visit: Yes (4) Polysubstance abuse SNOMED Code(s): 466319501 ICD Code: F19.10 - OTHER PSYCHOACTIVE SUBSTANCE ABUSE, UNCOMPLICATED Status: Chronic Current Visit: Yes (5) Obesity, morbid, BMI 40.0-49.9 SNOMED Code(s): 246350424, 370611410, 48044565947122 ICD Code: E66.01 - MORBID (SEVERE) OBESITY DUE TO EXCESS CALORIES Status: Chronic Current Visit: Yes (6) History of PSVT (paroxysmal supraventricular tachycardia) SNOMED Code(s): 319173935499094 ICD Code: Z86.79 - PERSONAL HISTORY OF OTHER DISEASES OF THE CIRCULATORY SYSTEM Status: Chronic Current Visit: Yes Problem List Initiated/Reviewed/Updated: Yes Orders Last 24hrs: Active Orders 24 hr Category Date Time Status Patient Status [ADT] Routine ADT 04/16/21 13:47 Ordered Intake and Output [RC] QSHIFT Care 04/16/21 13:48 Ordered Oxygen Therapy [RC] PRN Care 04/16/21 13:47 Ordered Up With Assistance [RC] ASDIRECTED Care 04/16/21 13:47 Ordered VTE/DVT Education [RC] PER UNIT ROUTINE Care 04/16/21 13:47 Ordered Vital Signs [RC] Q4H Care 04/16/21 13:47 Ordered Regular Diet [DIET] Diet 04/16/21 Lunch Ordered BASIC METABOLIC PANEL,BMP [CHEM] AM Lab 04/17/21 05:11 Ordered CBC WITH AUTO DIFF [HEME] AM Lab 04/17/21 05:11 Ordered CULTURE BLOOD [BC] Stat Lab 04/16/21 08:57 Received CULTURE BLOOD [BC] Stat Lab 04/16/21 09:16 Received MAGNESIUM [CHEM] AM Lab 04/17/21 05:11 Ordered Acetaminophen [TylenoL] Med 04/16/21 13:47 Ordered 650 mg PO Q4H PRN Docusate Sodium [Colace] Med 04/16/21 13:47 Ordered 100 mg PO BID PRN Enoxaparin [Lovenox] Med 04/16/21 14:00 Ordered 40 mg SUBCUT Q24H Lactated Ringers [Ringers, Lactated] 1,000 ml Med 04/16/21 13:52 Ordered IV .BOLUS Lactated Ringers [Ringers, Lactated] 1,000 ml Med 04/16/21 14:00 Ordered IV Q8H Morphine Med 04/16/21 13:52 Ordered 2 mg IVPUSH Q4H PRN Ondansetron [Zofran] Med 04/16/21 13:47 Ordered 4 mg IVPUSH Q4H PRN Pharmacy to Dose - Vancomycin Med 04/16/21 14:00 Ordered 1 dose .XX ASDIRECTED Piperacillin/Tazobactam [Piperacil-Tazobact] 3.375 gm Med 04/16/21 14:00 Ordered Sodium Chloride 0.9% [Normal Saline] 50 ml IV Q6H Sodium Chloride 0.9% [Saline Flush] Med 04/16/21 08:38 Active 10 ml FLUSH ASDIRECTED PRN Sodium Chloride 0.9% [Saline Flush] Med 04/16/21 08:38 Active 2.5 ml FLUSH ASDIRECTED PRN Sodium Chloride 0.9% [Saline Flush] Med 04/16/21 13:47 Ordered 2.5 ml FLUSH ASDIRECTED PRN Blood Culture x2 Reflex Set [OM.PC] Stat Oth 04/16/21 08:38 Ordered Saline Lock Insert [OM.PC] Routine Oth 04/16/21 13:47 Ordered Saline Lock Insert [OM.PC] Stat Oth 04/16/21 08:38 Ordered Resuscitation Status Routine Resus Stat 04/16/21 13:47 Ordered Medication Orders Acetaminophen (Acetaminophen 325 Mg Tab) 650 mg PO Q4H PRN PRN Reason: Pain (Mild 1-3)/fever Docusate Sodium (Docusate Sodium 100 Mg Cap) 100 mg PO BID PRN PRN Reason: Constipation Enoxaparin Sodium (Enoxaparin 40 Mg/0.4 Ml Syringe) 40 mg SUBCUT Q24H [facility] Lactated Ringer's (Ringers, Lactated) 1,000 mls @ 125 mls/hr IV Q8H [facility] Piperacillin Sod/Tazobactam (Sod 3.375 gm/ Sodium Chloride) 50 mls @ 100 mls/hr IV Q6H [facility] Lactated Ringer's (Ringers, Lactated) 1,000 mls @ 999 mls/hr IV .BOLUS ONE Stop: 04/16/21 14:52 Ondansetron HCl (Ondansetron 4 Mg/2 Ml Sdv) 4 mg IVPUSH Q4H PRN PRN Reason: Nausea Sodium Chloride (Sodium Chloride 0.9% 10 Ml Syringe) 10 ml FLUSH ASDIRECTED PRN PRN Reason: Keep Vein Open Last Admin: 04/16/21 09:07 Dose: 10 ml Documented by: JAVIER Sodium Chloride (Sodium Chloride 0.9% 2.5 Ml Syringe) 2.5 ml FLUSH ASDIRECTED PRN PRN Reason: Keep Vein Open Last Admin: 04/16/21 08:44 Dose: 2.5 ml Documented by: JAVIER Sodium Chloride (Sodium Chloride 0.9% 2.5 Ml Syringe) 2.5 ml FLUSH ASDIRECTED PRN PRN Reason: Keep Vein Open Vancomycin HCl (Pharmacy To Dose - Vancomycin) 1 dose .XX ASDIRECTED [facility] Assessment/Plan Comment:: This 40-year-old female admitted with sepsis along with right forearm cellulitis secondary to IV drug use 1. Sepsis with right forearm cellulitis -Ash skin to assess for improvement of cellulitis -Obtain lactic acid -Blood cultures pending -We will order vancomycin and Zosyn for broad spectrum coverage -No current fluctuance noted will hold off on CT for now may consider in the following days to evaluate for development of an abscess -Give 1 L LR bolus now due to tachycardia -Continue LR 125 mL/h -Elevate right arm -Oxycodone 5 mg every 6 hours as needed pain -Morphine 2 mg IV every 4 hours as needed pain -Zofran as needed nausea VTE prophylaxis: Lovenox CODE STATUS: Full code Dispo 2 to 3 days pending improvement. Patient was counseled that if there is an abscess formation she may need to be transferred to tertiary center as no orthopedic surgeon is available for drainage if needed. Patient verbalized understanding and agreement.
[2021-04-16] MEDS: oxyCODONE 5 MG Tab PO PRN (14:58)
[2021-04-16] MEDS ORDERED: Enoxaparin 40 MG/0.4 ML Syringe SUBCUT SCH (15:00)
--- NOTE | 2021-04-16 15:25 | PCM.SN.2 ---
- Free Text/Narrative Note: Iv started to left upper arm under ultrasound guidance. patient tolerated well. area prepped with chlorhexadine prior to IV start and catheter had good blood return.
[2021-04-16] MEDS: Piperacillin/Tazobactam 3.375 GM in Sodium Chloride 0.9% 50 ML IV SCH ×2 (15:40→19:14)
[2021-04-16] MEDS ORDERED: VANCOmycin 2 GM/400 ML 400 ML IV SCH ×2 (17:00→22:00)
[2021-04-16] MEDS: HYDROmorphone 1 MG/ML Syringe IVPUSH PRN ×2 (17:47→21:03)
[2021-04-16] MEDS ORDERED: Iopamidol 755 MG/ML 500 ML Multipack Bottle IVPUSH STA (18:40)
--- NOTE | 2021-04-16 19:17 | CT ---
HISTORY: Cellulitis. TECHNIQUE: Intravenous contrast enhanced CT of the right elbow. 100 mL of Isovue-370 intravenous contrast administered. Scanning was delayed following contrast administration as the patient experienced an episode of anxiety per the technologist. COMPARISON: Ultrasound 04/16/2021. FINDINGS: There is no acute fracture. No bony destructive change to suggest osteomyelitis. No elbow joint effusion is seen. There is no soft tissue gas. There is infiltration of the subcutaneous tissues of the upper arm, elbow region and forearm which may relate to edema and/or cellulitis. No well-defined fluid collection is seen on this study. IMPRESSION: 1. Infiltration of the subcutaneous tissues which may relate to edema and/or cellulitis. 2. No well-defined fluid collection. 3. No soft tissue gas. 4. No bony destructive change to suggest osteomyelitis. Please note that all CT scans at this facility use dose modulation, iterative reconstruction, and/or weight-based dosing when appropriate to reduce radiation dose to as low as reasonably achievable. Dictated by Grabiel Ruff MD @ 04/16/2021 7:15:46 PM (Electronically Signed)
[2021-04-16] MEDS: Acetaminophen 325 MG Tab PO PRN (20:39)
[2021-04-16] MEDS: Lactated Ringers 1,000 ML IV SCH ×2 (21:47→21:48)
[2021-04-17] MEDS: HYDROmorphone 1 MG/ML Syringe IVPUSH PRN ×7 (00:34→22:00)
[2021-04-17] MEDS: Piperacillin/Tazobactam 3.375 GM in Sodium Chloride 0.9% 50 ML IV SCH ×4 (01:12→20:15)
[2021-04-17] MEDS: oxyCODONE 5 MG Tab PO PRN ×3 (06:15→20:15)
[2021-04-17 06:57] LABS: BLOOD UREA NITROGEN,BUN 6 mg/dL (7.0-18.0); CARBON DIOXIDE,CO2 24.7 mmol/L (21.0-32.0); CHLORIDE,CL 101 mmol/L (98-107); GLUCOSE RANDOM 120 mg/dL (74-106); POTASSIUM,K 3.4 mmol/L (3.5-5.1); SODIUM,NA 133 mmol/L (136-145)
--- NOTE | 2021-04-17 07:52 | PCM.PN ---
- General Info Date of Service: 04/17/21 Admission Dx/Problem (Free Text): Admission Diagnosis/Problem Admission Diagnosis/Problem Cellulitis of arm Subjective Update: Small improvement overnight continues to have pain to right arm with significant swelling redness and tenderness. Denies any chest pain or shortness of breath. Reports she is now in a better state of mind is yesterday she is coming down off her methamphetamine she used earlier in the day. Understands plan and has no questions or comments at this time. Results of her CT were discussed with her. Functional Status: Reports: Pain Controlled, Tolerating Diet, Ambulating, Urinating - Review of Systems General: Reports: No Symptoms. Denies: Weakness, Fatigue, Malaise HEENT: Reports: No Symptoms. Denies: Headaches, Sore Throat, Visual Changes Pulmonary: Reports: No Symptoms. Denies: Shortness of Breath Cardiovascular: Reports: No Symptoms. Denies: Chest Pain Gastrointestinal: Reports: No Symptoms. Denies: Abdominal Pain, Nausea, Vomiting Genitourinary: Reports: No Symptoms. Denies: Dysuria, Frequency, Burning Musculoskeletal: Reports: Arm Pain (Right arm) Skin: Reports: Other (Redness and swelling to right arm) Neurological: Reports: No Symptoms Psychiatric: Reports: No Symptoms - Patient Data Vitals - Most Recent: Last Vital Signs Temp 98.0 F 04/17/21 03:21 Pulse 100 04/17/21 03:21 Resp 18 04/17/21 03:21 BP 124/74 04/17/21 03:21 Pulse Ox 94 L 04/17/21 03:21 Weight - Most Recent: 131.542 kg I&O - Last 24 Hours: Intake & Output 04/16/21 04/17/21 04/17/21 22:59 06:59 14:59 Intake Total 700 780 Output Total 400 900 Balance 300 -120 Lab Results Last 24 Hours: Laboratory Results - last 24 hr 04/16/21 04/16/21 04/16/21 Range/Units 08:57 08:57 08:57 WBC 23.88 H (4.0-11.0) K/uL RBC 4.80 (4.30-5.90) M/uL Hgb 14.7 (12.0-16.0) g/dL Hct 41.8 (36.0-46.0) % MCV 87.1 (80.0-98.0) fL MCH 30.6 (27.0-32.0) pg MCHC 35.2 (31.0-37.0) g/dL RDW Std Deviation 42.0 (28.0-62.0) fl RDW Coeff of Simona 13 (11.0-15.0) % Plt Count 328 (150-400) K/uL MPV 9.10 (7.40-12.00) fL Neut % (Auto) 85.1 H (48.0-80.0) % Lymph % (Auto) 8.1 L (16.0-40.0) % Turner % (Auto) 6.2 (0.0-15.0) % Eos % (Auto) 0.4 (0.0-7.0) % Baso % (Auto) 0.2 (0.0-1.5) % Neut # (Auto) 20.3 H (1.4-5.7) K/uL Lymph # (Auto) 1.9 (0.6-2.4) K/uL Turner # (Auto) 1.5 H (0.0-0.8) K/uL Eos # (Auto) 0.1 (0.0-0.7) K/uL Baso # (Auto) 0.0 (0.0-0.1) K/uL Nucleated RBC % 0.0 /100WBC Nucleated RBCs # 0 K/uL Sodium 134 L (136-145) mmol/L Potassium 3.5 (3.5-5.1) mmol/L Chloride 101 (98-107) mmol/L Carbon Dioxide 24.3 (21.0-32.0) mmol/L BUN 11 (7.0-18.0) mg/dL Creatinine 0.9 (0.6-1.0) mg/dL Est Cr Clr Drug Dosing 73.27 mL/min Estimated GFR (MDRD) > 60.0 ml/min Glucose 116 H (74-106) mg/dL Lactic Acid (0.4-2.0) mmol/L Calcium 9.0 (8.5-10.1) mg/dL Magnesium (1.8-2.4) mg/dL HCG, Qual NEGATIVE (NEG) SARS-CoV-2 RNA (SHANNAN) (NEGATIVE) 09/04/2804/16/21 04/17/21 Range/Units 14:00 14:58 05:39 WBC 19.98 H (4.0-11.0) K/uL RBC 4.37 (4.30-5.90) M/uL Hgb 13.0 (12.0-16.0) g/dL Hct 37.9 (36.0-46.0) % MCV 86.7 (80.0-98.0) fL MCH 29.7 (27.0-32.0) pg MCHC 34.3 (31.0-37.0) g/dL RDW Std Deviation 42.1 (28.0-62.0) fl RDW Coeff of Simona 13 (11.0-15.0) % Plt Count 301 (150-400) K/uL MPV 9.00 (7.40-12.00) fL Neut % (Auto) 82.6 H (48.0-80.0) % Lymph % (Auto) 10.0 L (16.0-40.0) % Turner % (Auto) 6.3 (0.0-15.0) % Eos % (Auto) 0.9 (0.0-7.0) % Baso % (Auto) 0.2 (0.0-1.5) % Neut # (Auto) 16.5 H (1.4-5.7) K/uL Lymph # (Auto) 2.0 (0.6-2.4) K/uL Turner # (Auto) 1.3 H (0.0-0.8) K/uL Eos # (Auto) 0.2 (0.0-0.7) K/uL Baso # (Auto) 0.0 (0.0-0.1) K/uL Nucleated RBC % 0.0 /100WBC Nucleated RBCs # 0 K/uL Sodium (136-145) mmol/L Potassium (3.5-5.1) mmol/L Chloride (98-107) mmol/L Carbon Dioxide (21.0-32.0) mmol/L BUN (7.0-18.0) mg/dL Creatinine (0.6-1.0) mg/dL Est Cr Clr Drug Dosing mL/min Estimated GFR (MDRD) ml/min Glucose (74-106) mg/dL Lactic Acid 1.6 (0.4-2.0) mmol/L Calcium (8.5-10.1) mg/dL Magnesium (1.8-2.4) mg/dL HCG, Qual (NEG) SARS-CoV-2 RNA (SHANNAN) NEGATIVE (NEGATIVE) 04/17/21 Range/Units 05:39 WBC (4.0-11.0) K/uL RBC (4.30-5.90) M/uL Hgb (12.0-16.0) g/dL Hct (36.0-46.0) % MCV (80.0-98.0) fL MCH (27.0-32.0) pg MCHC (31.0-37.0) g/dL RDW Std Deviation (28.0-62.0) fl RDW Coeff of Simona (11.0-15.0) % Plt Count (150-400) K/uL MPV (7.40-12.00) fL Neut % (Auto) (48.0-80.0) % Lymph % (Auto) (16.0-40.0) % Turner % (Auto) (0.0-15.0) % Eos % (Auto) (0.0-7.0) % Baso % (Auto) (0.0-1.5) % Neut # (Auto) (1.4-5.7) K/uL Lymph # (Auto) (0.6-2.4) K/uL Turner # (Auto) (0.0-0.8) K/uL Eos # (Auto) (0.0-0.7) K/uL Baso # (Auto) (0.0-0.1) K/uL Nucleated RBC % /100WBC Nucleated RBCs # K/uL Sodium 133 L (136-145) mmol/L Potassium 3.4 L (3.5-5.1) mmol/L Chloride 101 (98-107) mmol/L Carbon Dioxide 24.7 (21.0-32.0) mmol/L BUN 6 L (7.0-18.0) mg/dL Creatinine 0.8 (0.6-1.0) mg/dL Est Cr Clr Drug Dosing 82.30 mL/min Estimated GFR (MDRD) > 60.0 ml/min Glucose 120 H (74-106) mg/dL Lactic Acid (0.4-2.0) mmol/L Calcium 8.0 L (8.5-10.1) mg/dL Magnesium 1.8 (1.8-2.4) mg/dL HCG, Qual (NEG) SARS-CoV-2 RNA (SHANNAN) (NEGATIVE) Med Orders - Current: Current Medications Acetaminophen (Acetaminophen 325 Mg Tab) 650 mg PO Q4H PRN PRN Reason: Pain (Mild 1-3)/fever Last Admin: 04/16/21 20:39 Dose: 650 mg Documented by: Docusate Sodium (Docusate Sodium 100 Mg Cap) 100 mg PO BID PRN PRN Reason: Constipation Enoxaparin Sodium (Enoxaparin 40 Mg/0.4 Ml Syringe) 40 mg SUBCUT Q24H [facility] Last Admin: 04/16/21 16:25 Dose: 40 mg Documented by: Hydromorphone HCl (Hydromorphone 1 Mg/Ml Syringe) 1 mg IVPUSH Q3H PRN PRN Reason: Pain Last Admin: 04/17/21 04:29 Dose: 1 mg Documented by: Lactated Ringer's (Ringers, Lactated) 1,000 mls @ 125 mls/hr IV Q8H [facility]IRE Last Admin: 04/16/21 21:48 Dose: 125 mls/hr Documented by: Piperacillin Sod/Tazobactam (Sod 3.375 gm/ Sodium Chloride) 50 mls @ 100 mls/hr IV Q6H [facility] Last Admin: 04/17/21 01:12 Dose: 100 mls/hr Documented by: Vancomycin HCl 2 gm/ Premix 400 mls @ 200 mls/hr IV Q12H [facility] Melatonin (Melatonin 3 Mg Tab) 6 mg PO BEDTIME PRN PRN Reason: Insomnia Ondansetron HCl (Ondansetron 4 Mg/2 Ml Sdv) 4 mg IVPUSH Q4H PRN PRN Reason: Nausea Oxycodone HCl (Oxycodone 5 Mg Tab) 5 mg PO Q6H PRN PRN Reason: Pain Last Admin: 04/17/21 06:15 Dose: 5 mg Documented by: Sodium Chloride (Sodium Chloride 0.9% 2.5 Ml Syringe) 2.5 ml FLUSH ASDIRECTED PRN PRN Reason: Keep Vein Open Vancomycin HCl (Pharmacy To Dose - Vancomycin) 1 dose .XX ASDIRECTED [facility] Discontinued Medications Acetaminophen (Acetaminophen 325 Mg Tab) 650 mg PO NOW ONE Stop: 04/16/21 09:06 Last Admin: 04/16/21 09:11 Dose: 650 mg Documented by: Hydromorphone HCl (Hydromorphone 1 Mg/Ml Syringe) 1 mg IVPUSH ONETIME ONE Stop: 04/16/21 09:51 Last Admin: 04/16/21 10:08 Dose: 1 mg Documented by: Cefazolin Sodium/Dextrose 1 gm (/ Premix) 50 mls @ 100 mls/hr IV ONETIME ONE Stop: 04/16/21 09:08 Last Admin: 04/16/21 09:07 Dose: 100 mls/hr Documented by: Vancomycin HCl 1,000 mg/ (Sodium Chloride) 100 mls @ 100 mls/hr IV ONETIME ONE Stop: 04/16/21 09:37 Last Admin: 04/16/21 09:51 Dose: Not Given Documented by: Vancomycin HCl 1 gm/ Sodium (Chloride) 250 mls @ 250 mls/hr IV ONETIME ONE Stop: 04/16/21 10:29 Last Admin: 04/16/21 09:41 Dose: 250 mls/hr Documented by: Lactated Ringer's (Ringers, Lactated) 1,000 mls @ 999 mls/hr IV .BOLUS ONE Stop: 04/16/21 14:52 Last Admin: 04/16/21 15:47 Dose: 999 mls/hr Documented by: Vancomycin HCl (Vancomycin 2 Gm/400 Ml) 400 mls @ 200 mls/hr IV Q12H [facility] Last Admin: 04/16/21 21:13 Dose: Not Given Documented by: Vancomycin HCl (Vancomycin 2 Gm/400 Ml) 400 mls @ 200 mls/hr IV Q12H [facility] Last Admin: 04/16/21 21:47 Dose: 200 mls/hr Documented by: Iopamidol (Iopamidol 755 Mg/Ml 500 Ml Multipack Bottle) 100 ml IVPUSH ONETIME STA Stop: 04/16/21 18:41 Last Admin: 04/16/21 18:40 Dose: 100 ml Documented by: Morphine Sulfate (Morphine 2 Mg/Ml Syringe) 2 mg IVPUSH Q4H PRN PRN Reason: Pain Last Admin: 04/16/21 16:21 Dose: 2 mg Documented by: Sodium Chloride (Sodium Chloride 0.9% 10 Ml Syringe) 10 ml FLUSH ASDIRECTED PRN PRN Reason: Keep Vein Open Last Admin: 04/16/21 09:07 Dose: 10 ml Documented by: Sodium Chloride (Sodium Chloride 0.9% 2.5 Ml Syringe) 2.5 ml FLUSH ASDIRECTED PRN PRN Reason: Keep Vein Open Last Admin: 04/16/21 08:44 Dose: 2.5 ml Documented by: Tramadol HCl (Tramadol 50 Mg Tab) 50 mg PO ONETIME ONE Stop: 04/16/21 09:06 Last Admin: 04/16/21 09:11 Dose: 50 mg Documented by: - Exam Quality Assessment: DVT Prophylaxis. No: Supplemental Oxygen General: Alert, Oriented, Cooperative, No Acute Distress Lungs: Clear to Auscultation, Normal Respiratory Effort Cardiovascular: Regular Rate, Regular Rhythm GI/Abdominal Exam: Normal Bowel Sounds, Soft, Non-Tender, Other (Obese abdomen limits exam) Extremities: Normal Inspection, No Pedal Edema, Arm Pain (Right arm), Increased Warmth, Redness (Erythema is fairly stable compared to yesterday. Induration c ontinues in the antecubital space. No drainage and no fluctuance noted.). No: Normal Range of Motion Wound/Incisions: No Drainage, Erythema Neurological: No New Focal Deficit Psy/Mental Status: Alert, Normal Affect, Normal Mood - Patient Data Lab Results Last 24 hrs: Laboratory Results - last 24 hr 04/16/21 04/16/21 04/16/21 Range/Units 08:57 08:57 08:57 WBC 23.88 H (4.0-11.0) K/uL RBC 4.80 (4.30-5.90) M/uL Hgb 14.7 (12.0-16.0) g/dL Hct 41.8 (36.0-46.0) % MCV 87.1 (80.0-98.0) fL MCH 30.6 (27.0-32.0) pg MCHC 35.2 (31.0-37.0) g/dL RDW Std Deviation 42.0 (28.0-62.0) fl RDW Coeff of Simona 13 (11.0-15.0) % Plt Count 328 (150-400) K/uL MPV 9.10 (7.40-12.00) fL Neut % (Auto) 85.1 H (48.0-80.0) % Lymph % (Auto) 8.1 L (16.0-40.0) % Turner % (Auto) 6.2 (0.0-15.0) % Eos % (Auto) 0.4 (0.0-7.0) % Baso % (Auto) 0.2 (0.0-1.5) % Neut # (Auto) 20.3 H (1.4-5.7) K/uL Lymph # (Auto) 1.9 (0.6-2.4) K/uL Turner # (Auto) 1.5 H (0.0-0.8) K/uL Eos # (Auto) 0.1 (0.0-0.7) K/uL Baso # (Auto) 0.0 (0.0-0.1) K/uL Nucleated RBC % 0.0 /100WBC Nucleated RBCs # 0 K/uL Sodium 134 L (136-145) mmol/L Potassium 3.5 (3.5-5.1) mmol/L Chloride 101 (98-107) mmol/L Carbon Dioxide 24.3 (21.0-32.0) mmol/L BUN 11 (7.0-18.0) mg/dL Creatinine 0.9 (0.6-1.0) mg/dL Est Cr Clr Drug Dosing 73.27 mL/min Estimated GFR (MDRD) > 60.0 ml/min Glucose 116 H (74-106) mg/dL Lactic Acid (0.4-2.0) mmol/L Calcium 9.0 (8.5-10.1) mg/dL Magnesium (1.8-2.4) mg/dL HCG, Qual NEGATIVE (NEG) SARS-CoV-2 RNA (SHANNAN) (NEGATIVE) 04/16/21 04/16/21 04/17/21 Range/Units 14:00 14:58 05:39 WBC 19.98 H (4.0-11.0) K/uL RBC 4.37 (4.30-5.90) M/uL Hgb 13.0 (12.0-16.0) g/dL Hct 37.9 (36.0-46.0) % MCV 86.7 (80.0-98.0) fL MCH 29.7 (27.0-32.0) pg MCHC 34.3 (31.0-37.0) g/dL RDW Std Deviation 42.1 (28.0-62.0) fl RDW Coeff of Simona 13 (11.0-15.0) % Plt Count 301 (150-400) K/uL MPV 9.00 (7.40-12.00) fL Neut % (Auto) 82.6 H (48.0-80.0) % Lymph % (Auto) 10.0 L (16.0-40.0) % Turner % (Auto) 6.3 (0.0-15.0) % Eos % (Auto) 0.9 (0.0-7.0) % Baso % (Auto) 0.2 (0.0-1.5) % Neut # (Auto) 16.5 H (1.4-5.7) K/uL Lymph # (Auto) 2.0 (0.6-2.4) K/uL Turner # (Auto) 1.3 H (0.0-0.8) K/uL Eos # (Auto) 0.2 (0.0-0.7) K/uL Baso # (Auto) 0.0 (0.0-0.1) K/uL Nucleated RBC % 0.0 /100WBC Nucleated RBCs # 0 K/uL Sodium (136-145) mmol/L Potassium (3.5-5.1) mmol/L Chloride (98-107) mmol/L Carbon Dioxide (21.0-32.0) mmol/L BUN (7.0-18.0) mg/dL Creatinine (0.6-1.0) mg/dL Est Cr Clr Drug Dosing mL/min Estimated GFR (MDRD) ml/min Glucose (74-106) mg/dL Lactic Acid 1.6 (0.4-2.0) mmol/L Calcium (8.5-10.1) mg/dL Magnesium (1.8-2.4) mg/dL HCG, Qual (NEG) SARS-CoV-2 RNA (SHANNAN) NEGATIVE (NEGATIVE) 04/17/21 Range/Units 05:39 WBC (4.0-11.0) K/uL RBC (4.30-5.90) M/uL Hgb (12.0-16.0) g/dL Hct (36.0-46.0) % MCV (80.0-98.0) fL MCH (27.0-32.0) pg MCHC (31.0-37.0) g/dL RDW Std Deviation (28.0-62.0) fl RDW Coeff of Simona (11.0-15.0) % Plt Count (150-400) K/uL MPV (7.40-12.00) fL Neut % (Auto) (48.0-80.0) % Lymph % (Auto) (16.0-40.0) % Turner % (Auto) (0.0-15.0) % Eos % (Auto) (0.0-7.0) % Baso % (Auto) (0.0-1.5) % Neut # (Auto) (1.4-5.7) K/uL Lymph # (Auto) (0.6-2.4) K/uL Turner # (Auto) (0.0-0.8) K/uL Eos # (Auto) (0.0-0.7) K/uL Baso # (Auto) (0.0-0.1) K/uL Nucleated RBC % /100WBC Nucleated RBCs # K/uL Sodium 133 L (136-145) mmol/L Potassium 3.4 L (3.5-5.1) mmol/L Chloride 101 (98-107) mmol/L Carbon Dioxide 24.7 (21.0-32.0) mmol/L BUN 6 L (7.0-18.0) mg/dL Creatinine 0.8 (0.6-1.0) mg/dL Est Cr Clr Drug Dosing 82.30 mL/min Estimated GFR (MDRD) > 60.0 ml/min Glucose 120 H (74-106) mg/dL Lactic Acid (0.4-2.0) mmol/L Calcium 8.0 L (8.5-10.1) mg/dL Magnesium 1.8 (1.8-2.4) mg/dL HCG, Qual (NEG) SARS-CoV-2 RNA (SHANNAN) (NEGATIVE) Result Diagrams: 04/17/21 05:39 04/17/21 05:39 Sepsis Event Note - Evaluation Sepsis Screening Result: Possible Sepsis Risk - Focused Exam Vital Signs: Vital Signs Temp Pulse Resp BP BP Pulse Ox 04/17/21 03:21 98.0 F 100 18 124/74 94 L 04/17/21 00:31 98.9 F 99 16 121/63 94 L 04/16/21 20:35 97.8 F 103 H 22 H 136/82 96 - Problem List & Annotations (1) Sepsis SNOMED Code(s): 53630589 Code(s): A41.9 - SEPSIS, UNSPECIFIED ORGANISM Status: Acute Current Visit: Yes Qualifiers: Sepsis acute organ dysfunction status: without acute organ dysfunction (2) Cellulitis of arm, right SNOMED Code(s): 609898009 Code(s): L03.113 - CELLULITIS OF RIGHT UPPER LIMB Status: Acute Current V isit: Yes (3) IVDU (intravenous drug user) SNOMED Code(s): 068511937 Code(s): F19.90 - OTHER PSYCHOACTIVE SUBSTANCE USE, UNSPECIFIED, UNCOMPLICATED Status: Chronic Current Visit: Yes (4) Polysubstance abuse SNOMED Code(s): 531017952 Code(s): F19.10 - OTHER PSYCHOACTIVE SUBSTANCE ABUSE, UNCOMPLICATED Status: Chronic Current Visit: Yes (5) Obesity, morbid, BMI 40.0-49.9 SNOMED Code(s): 207168593, 916483798, 19058910513450 Code(s): E66.01 - MORBID (SEVERE) OBESITY DUE TO EXCESS CALORIES Status: Chronic Current Visit: Yes (6) History of PSVT (paroxysmal supraventricular tachycardia) SNOMED Code(s): 813894322211689 Code(s): Z86.79 - PERSONAL HISTORY OF OTHER DISEASES OF THE CIRCULATORY SYSTEM Status: Chronic Current Visit: Yes - Problem List Review Problem List Initiated/Reviewed/Updated: Yes - My Orders Last 24 Hours: My Active Orders 04/16/21 Lunch Regular Diet [DIET] 04/16/21 13:47 Patient Status [ADT] Routine Oxygen Therapy [RC] PRN Up With Assistance [RC] ASDIRECTED VTE/DVT Education [RC] PER UNIT ROUTINE Vital Signs [RC] Q4H Acetaminophen [TylenoL] 650 mg PO Q4H PRN Docusate Sodium [Colace] 100 mg PO BID PRN Ondansetron [Zofran] 4 mg IVPUSH Q4H PRN Sodium Chloride 0.9% [Saline Flush] 2.5 ml FLUSH ASDIRECTED PRN Saline Lock Insert [OM.PC] Routine Resuscitation Status Routine 04/16/21 13:48 Intake and Output [RC] QSHIFT 04/16/21 14:00 Lactated Ringers [Ringers, Lactated] 1,000 ml IV Q8H Pharmacy to Dose - Vancomycin 1 dose .XX ASDIRECTED Piperacillin/Tazobactam [Piperacil-Tazobact] 3.375 gm Sodium Chloride 0.9% [Normal Saline] 50 ml IV Q6H 04/16/21 14:22 oxyCODONE 5 mg PO Q6H PRN 04/16/21 15:00 Enoxaparin [Lovenox] 40 mg SUBCUT Q24H - Plan Plan:: This 40-year-old female admitted with sepsis along with right forearm cellulitis secondary to IV drug use 1. Sepsis with right forearm cellulitis -No significant change in arm appearance today. Induration continues no abscess formation as of yet. -CT of the arm obtained which shows Infiltration of the subcutaneous tissues which may relate to edema and/or cellulitis, no well-defined fluid collection, no soft tissue gas and no bony destruction suggestive of osteomyelitis. -Blood cultures negative x1 day -Continue vancomycin and Zosyn for broad spectrum coverage -Continue LR 125 mL/h -Elevate right arm -Oxycodone 5 mg every 6 hours as needed pain -Dilaudid -Zofran as needed nausea VTE prophylaxis: Lovenox CODE STATUS: Full code Dispo 2 to 3 days pending improvement. Patient was counseled that if there is an abscess formation she may need to be transferred to tertiary center as no orthopedic surgeon is available for drainage if needed. Patient verbalized understanding and agreement.
[2021-04-17] MEDS: Lactated Ringers 1,000 ML IV SCH ×3 (08:44→21:10)
[2021-04-17] MEDS: VANCOmycin 2 GM/400 ML 2 GM in Premix Bag 1 BAG IV SCH ×2 (10:13→21:59)
[2021-04-17] MEDS: Acetaminophen 325 MG Tab PO PRN (10:13)
[2021-04-17] MEDS ORDERED: oxyCODONE 5 MG Tab PO PRN (14:31)
[2021-04-17] MEDS: Enoxaparin 40 MG/0.4 ML Syringe SUBCUT SCH (14:40)
[2021-04-17] MEDS: Melatonin 3 MG Tab PO PRN (22:01)
[2021-04-18] MEDS: HYDROmorphone 1 MG/ML Syringe IVPUSH PRN ×6 (01:31→21:12)
[2021-04-18] MEDS: Enoxaparin 40 MG/0.4 ML Syringe SUBCUT SCH ×2 (01:32→13:44)
[2021-04-18] MEDS: Piperacillin/Tazobactam 3.375 GM in Sodium Chloride 0.9% 50 ML IV SCH ×4 (01:32→21:42)
[2021-04-18] MEDS: oxyCODONE 5 MG Tab PO PRN ×2 (07:35→16:21)
[2021-04-18 08:45] LABS: BLOOD UREA NITROGEN,BUN 4 mg/dL (7.0-18.0); CARBON DIOXIDE,CO2 25.9 mmol/L (21.0-32.0); CHLORIDE,CL 103 mmol/L (98-107); GLUCOSE RANDOM 184 mg/dL (74-106); POTASSIUM,K 3.9 mmol/L (3.5-5.1); SODIUM,NA 137 mmol/L (136-145)
[2021-04-18] MEDS: Lactated Ringers 1,000 ML IV SCH ×2 (09:20→21:53)
[2021-04-18] MEDS ORDERED: VANCOmycin 1.5 GM/300 ML 1.5 GM in Premix Bag 1 BAG IV SCH (11:00)
[2021-04-18] MEDS: VANCOmycin 1.75 GM/350 ML 1.75 GM in Premix Bag 1 BAG IV SCH ×2 (11:40→19:29)
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
[2021-04-18] MEDS: Docusate Sodium 100 MG Cap PO PRN (17:39)
[2021-04-18] MEDS: VANCOmycin 2 GM/400 ML 2 GM in Premix Bag 1 BAG IV SCH (19:20)
[2021-04-18] MEDS: Acetaminophen 325 MG Tab PO PRN ×2 (19:48→23:33)
[2021-04-18] MEDS: Melatonin 3 MG Tab PO PRN (21:12)
[2021-04-19] MEDS: HYDROmorphone 1 MG/ML Syringe IVPUSH PRN ×7 (00:38→21:12)
[2021-04-19] MEDS: Enoxaparin 40 MG/0.4 ML Syringe SUBCUT SCH ×2 (00:46→13:53)
[2021-04-19] MEDS: Lactated Ringers 1,000 ML IV SCH ×2 (00:47→06:47)
[2021-04-19] MEDS: Piperacillin/Tazobactam 3.375 GM in Sodium Chloride 0.9% 50 ML IV SCH ×4 (02:03→21:43)
[2021-04-19] MEDS: VANCOmycin 1.75 GM/350 ML 1.75 GM in Premix Bag 1 BAG IV SCH ×3 (02:42→19:28)
[2021-04-19] MEDS: oxyCODONE 5 MG Tab PO PRN ×4 (05:44→23:46)
[2021-04-19 06:57] LABS: BLOOD UREA NITROGEN,BUN 5 mg/dL (7.0-18.0); CARBON DIOXIDE,CO2 28.6 mmol/L (21.0-32.0); CHLORIDE,CL 102 mmol/L (98-107); GLUCOSE RANDOM 130 mg/dL (74-106); POTASSIUM,K 3.9 mmol/L (3.5-5.1); SODIUM,NA 138 mmol/L (136-145)
[2021-04-19] MEDS: Docusate Sodium 100 MG Cap PO PRN (10:29)
[2021-04-19] MEDS: Acetaminophen 325 MG Tab PO PRN ×2 (12:56→16:26)
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
[2021-04-19] MEDS: Melatonin 3 MG Tab PO PRN (21:11)
[2021-04-20] MEDS: Enoxaparin 40 MG/0.4 ML Syringe SUBCUT SCH ×2 (01:32→14:13)
[2021-04-20] MEDS: Piperacillin/Tazobactam 3.375 GM in Sodium Chloride 0.9% 50 ML IV SCH ×4 (01:33→21:28)
[2021-04-20] MEDS: HYDROmorphone 1 MG/ML Syringe IVPUSH PRN ×4 (01:33→21:13)
[2021-04-20] MEDS: VANCOmycin 1.75 GM/350 ML 1.75 GM in Premix Bag 1 BAG IV SCH ×3 (03:27→19:06)
[2021-04-20] MEDS: Acetaminophen 325 MG Tab PO PRN ×3 (03:42→19:02)
[2021-04-20] MEDS: oxyCODONE 5 MG Tab PO PRN ×3 (06:47→19:04)
[2021-04-20 06:58] LABS: BLOOD UREA NITROGEN,BUN 6 mg/dL (7.0-18.0); CARBON DIOXIDE,CO2 27.9 mmol/L (21.0-32.0); CHLORIDE,CL 102 mmol/L (98-107); GLUCOSE RANDOM 154 mg/dL (74-106); POTASSIUM,K 4.1 mmol/L (3.5-5.1); SODIUM,NA 136 mmol/L (136-145)
--- NOTE | 2021-04-20 15:41 | CT ---
HISTORY: Cellulitis. TECHNIQUE: CT right elbow with IV contrast. 100 mL Isovue-370 IV. COMPARISON: CT right elbow in 04/16/2021. FINDINGS: No erosions or periosteal reaction. No elbow joint effusion. Joint spaces are maintained. No lytic or blastic bone lesions. No soft tissue gas. Infiltration of subcutaneous tissues in the right arm greatest over the dorsal elbow and forearm. New skin irregularity in the proximal radial aspect of the forearm with underlying localized confluent soft tissue infiltration. Deep to this is a new crescentic hypodense region in the deep soft tissues in the periphery of the proximal extensor musculature (series 204, image 64). Hypodense region in the deep soft tissues measures approximately 3.5 x 1.5 x 4 cm. IMPRESSION: 1. New or more conspicuous wound in the radial proximal forearm. Underlying the wound is localized confluent infiltration of subcutaneous fat extending to a new 3.5 x 1.5 x 4 cm hypodense region within the periphery of the proximal extensor musculature. Deep soft tissue findings are suspicious for myositis or phlegmon. Associated localized fasciitis is not excluded. No soft tissue gas. No well-defined fluid collection. Subcutaneous fat infiltration elsewhere in the right arm from edema or cellulitis is similar to prior. 2. No acute bony abnormality. No elbow joint effusion. Please note that all CT scans at this facility use dose modulation, iterative reconstruction, and/or weight-based dosing when appropriate to reduce radiation dose to as low as reasonably achievable. Dictated by Saad Suh MD @ 04/20/2021 3:39:25 PM (Electronically Signed)
--- NOTE | 2021-04-20 15:55 | PCM.PN ---
- General Info Date of Service: 04/20/21 Admission Dx/Problem (Free Text): Admission Diagnosis/Problem Admission Diagnosis/Problem Cellulitis of arm Subjective Update: Patient seen at bedside, erythema is better swelling has gone down as well there is some swelling in the dorsal aspect of the arm which is most likely edema settling in due to gravity. Patient states the pain is better, leukocytosis is improving as well - Patient Data Vitals - Most Recent: Last Vital Signs Temp 36.7 C 04/20/21 08:09 Pulse 87 04/20/21 12:00 Resp 13 04/20/21 12:00 BP 115/65 04/20/21 12:00 Pulse Ox 95 04/20/21 12:00 Weight - Most Recent: 131.542 kg I&O - Last 24 Hours: Intake & Output 04/20/21 04/20/21 04/20/21 06:59 14:59 22:59 Intake Total 1780 Output Total 600 Balance 1180 Lab Results Last 24 Hours: Laboratory Results - last 24 hr 04/20/21 04/20/21 Range/Units 05:28 05:28 WBC 12.70 H (4.0-11.0) K/uL RBC 4.08 L (4.30-5.90) M/uL Hgb 12.1 (12.0-16.0) g/dL Hct 35.9 L (36.0-46.0) % MCV 88.0 (80.0-98.0) fL MCH 29.7 (27.0-32.0) pg MCHC 33.7 (31.0-37.0) g/dL RDW Std Deviation 41.8 (28.0-62.0) fl RDW Coeff of Simona 13 (11.0-15.0) % Plt Count 338 (150-400) K/uL MPV 8.60 (7.40-12.00) fL Add Manual Diff YES Neutrophils % (Manual) 69 (48.0-80.0) % Band Neutrophils % 2 % Lymphocytes % (Manual) 18 (16.0-40.0) % Monocytes % (Manual) 6 (0.0-15.0) % Eosinophils % (Manual) 2 (0.0-7.0) % Metamyelocytes % 2 % Myelocytes % 1 % Nucleated RBC % 0.0 /100WBC Absolute Seg Neuts 8.8 H (1.4-5.7) Band Neutrophils # 0.3 Lymphocytes # (Manual) 2.3 (0.6-2.4) Monocytes # (Manual) 0.8 (0.0-0.8) Eosinophils # (Manual) 0.3 (0.0-0.7) Absolute Metamyelocyte 0.3 Absolute Myelocytes 0.1 Nucleated RBCs # 0 K/uL Sodium 136 (136-145) mmol/L Potassium 4.1 (3.5-5.1) mmol/L Chloride 102 (98-107) mmol/L Carbon Dioxide 27.9 (21.0-32.0) mmol/L BUN 6 L (7.0-18.0) mg/dL Creatinine 0.8 (0.6-1.0) mg/dL Est Cr Clr Drug Dosing 82.30 mL/min Estimated GFR (MDRD) > 60.0 ml/min Glucose 154 H (74-106) mg/dL Calcium 9.0 (8.5-10.1) mg/dL Babar Results Last 24 Hours: Microbiology 04/18/21 19:20 Gram Stain - Final Wound 04/16/21 09:16 Aerobic Blood Culture - Preliminary Blood - Venous - Lab Draw NO GROWTH AFTER 4 DAYS Anaerobic Blood Culture - Preliminary NO GROWTH AFTER 4 DAYS 04/16/21 08:57 Aerobic Blood Culture - Preliminary Blood - Venous NO GROWTH AFTER 4 DAYS Anaerobic Blood Culture - Preliminary NO GROWTH AFTER 4 DAYS Med Orders - Current: Current Medications Acetaminophen (Acetaminophen 325 Mg Tab) 650 mg PO Q4H PRN PRN Reason: Pain (Mild 1-3)/fever Last Admin: 04/20/21 08:11 Dose: 650 mg Documented by: Docusate Sodium (Docusate Sodium 100 Mg Cap) 100 mg PO BID PRN PRN Reason: Constipation Last Admin: 04/19/21 10:29 Dose: 100 mg Documented by: Enoxaparin Sodium (Enoxaparin 40 Mg/0.4 Ml Syringe) 40 mg SUBCUT Q12H CLAIRE Last Admin: 04/20/21 14:13 Dose: 40 mg Documented by: Hydromorphone HCl (Hydromorphone 1 Mg/Ml Syringe) 1 mg IVPUSH Q3H PRN PRN Reason: Pain Last Admin: 04/20/21 10:50 Dose: 1 mg Documented by: Piperacillin Sod/Tazobactam (Sod 3.375 gm/ Sodium Chloride) 50 mls @ 100 mls/hr IV Q6H [facility] Last Admin: 04/20/21 14:14 Dose: 100 mls/hr Documented by: Vancomycin HCl 1.75 gm/ Premix 350 mls @ 175 mls/hr IV Q8H [facility] Last Admin: 04/20/21 11:36 Dose: 175 mls/hr Documented by: Melatonin (Melatonin 3 Mg Tab) 6 mg PO BEDTIME PRN PRN Reason: Insomnia Last Admin: 04/19/21 21:11 Dose: 6 mg Documented by: Ondansetron HCl (Ondansetron 4 Mg/2 Ml Sdv) 4 mg IVPUSH Q4H PRN PRN Reason: Nausea Oxycodone HCl (Oxycodone 5 Mg Tab) 5 mg PO Q4H PRN PRN Reason: Pain Last Admin: 04/20/21 14:12 Dose: 5 mg Documented by: Sodium Chloride (Sodium Chloride 0.9% 2.5 Ml Syringe) 2.5 ml FLUSH ASDIRECTED PRN PRN Reason: Keep Vein Open Vancomycin HCl (Pharmacy To Dose - Vancomycin) 1 dose .XX ASDIRECTED CLAIRE Discontinued Medications Acetaminophen (Acetaminophen 325 Mg Tab) 650 mg PO NOW ONE Stop: 04/16/21 09:06 Last Admin: 04/16/21 09:11 Dose: 650 mg Documented by: Enoxaparin Sodium (Enoxaparin 40 Mg/0.4 Ml Syringe) 40 mg SUBCUT Q24H [facility] Last Admin: 04/16/21 16:25 Dose: 40 mg Documented by: Hydromorphone HCl (Hydromorphone 1 Mg/Ml Syringe) 1 mg IVPUSH ONETIME ONE Stop: 04/16/21 09:51 Last Admin: 04/16/21 10:08 Dose: 1 mg Documented by: Cefazolin Sodium/Dextrose 1 gm (/ Premix) 50 mls @ 100 mls/hr IV ONETIME ONE Stop: 04/16/21 09:08 Last Admin: 04/16/21 09:07 Dose: 100 mls/hr Documented by: Vancomycin HCl 1,000 mg/ (Sodium Chloride) 100 mls @ 100 mls/hr IV ONETIME ONE Stop: 04/16/21 09:37 Last Admin: 04/16/21 09:51 Dose: Not Given Documented by: Vancomycin HCl 1 gm/ Sodium (Chloride) 250 mls @ 250 mls/hr IV ONETIME ONE Stop: 04/16/21 10:29 Last Admin: 04/16/21 09:41 Dose: 250 mls/hr Documented by: Lactated Ringer's (Ringers, Lactated) 1,000 mls @ 125 mls/hr IV Q8H [facility] Last Admin: 04/19/21 06:47 Dose: 125 mls/hr Documented by: Lactated Ringer's (Ringers, Lactated) 1,000 mls @ 999 mls/hr IV .BOLUS ONE Stop: 04/16/21 14:52 Last Admin: 04/16/21 15:47 Dose: 999 mls/hr Documented by: Vancomycin HCl (Vancomycin 2 Gm/400 Ml) 400 mls @ 200 mls/hr IV Q12H [facility] Last Admin: 04/16/21 21:13 Dose: Not Given Documented by: Vancomycin HCl (Vancomycin 2 Gm/400 Ml) 400 mls @ 200 mls/hr IV Q12H [facility] Last Admin: 04/16/21 21:47 Dose: 200 mls/hr Documented by: Vancomycin HCl 2 gm/ Premix 400 mls @ 200 mls/hr IV Q12H [facility] Last Admin: 04/18/21 19:20 Dose: Not Given Documented by: Iopamidol (Iopamidol 755 Mg/Ml 500 Ml Multipack Bottle) 100 ml IVPUSH ONETIME STA Stop: 04/16/21 18:41 Last Admin: 04/16/21 18:40 Dose: 100 ml Documented by: Morphine Sulfate (Morphine 2 Mg/Ml Syringe) 2 mg IVPUSH Q4H PRN PRN Reason: Pain Last Admin: 04/16/21 16:21 Dose: 2 mg Documented by: Oxycodone HCl (Oxycodone 5 Mg Tab) 5 mg PO Q6H PRN PRN Reason: Pain Last Admin: 04/17/21 06:15 Dose: 5 mg Documented by: Oxycodone HCl (Oxycodone 5 Mg Tab) 10 mg PO Q4H PRN PRN Reason: Pain Sodium Chloride (Sodium Chloride 0.9% 10 Ml Syringe) 10 ml FLUSH ASDIRECTED PRN PRN Reason: Keep Vein Open Last Admin: 04/16/21 09:07 Dose: 10 ml Documented by: Sodium Chloride (Sodium Chloride 0.9% 2.5 Ml Syringe) 2.5 ml FLUSH ASDIRECTED PRN PRN Reason: Keep Vein Open Last Admin: 04/16/21 08:44 Dose: 2.5 ml Documented by: Tramadol HCl (Tramadol 50 Mg Tab) 50 mg PO ONETIME ONE Stop: 04/16/21 09:06 Last Admin: 04/16/21 09:11 Dose: 50 mg Documented by: - Patient Data Lab Results Last 24 hrs: Laboratory Results - last 24 hr 04/20/21 04/20/21 Range/Units 05:28 05:28 WBC 12.70 H (4.0-11.0) K/uL RBC 4.08 L (4.30-5.90) M/uL Hgb 12.1 (12.0-16.0) g/dL Hct 35.9 L (36.0-46.0) % MCV 88.0 (80.0-98.0) fL MCH 29.7 (27.0-32.0) pg MCHC 33.7 (31.0-37.0) g/dL RDW Std Deviation 41.8 (28.0-62.0) fl RDW Coeff of Simona 13 (11.0-15.0) % Plt Count 338 (150-400) K/uL MPV 8.60 (7.40-12.00) fL Add Manual Diff YES Neutrophils % (Manual) 69 (48.0-80.0) % Band Neutrophils % 2 % Lymphocytes % (Manual) 18 (16.0-40.0) % Monocytes % (Manual) 6 (0.0-15.0) % Eosinophils % (Manual) 2 (0.0-7.0) % Metamyelocytes % 2 % Myelocytes % 1 % Nucleated RBC % 0.0 /100WBC Absolute Seg Neuts 8.8 H (1.4-5.7) Band Neutrophils # 0.3 Lymphocytes # (Manual) 2.3 (0.6-2.4) Monocytes # (Manual) 0.8 (0.0-0.8) Eosinophils # (Manual) 0.3 (0.0-0.7) Absolute Metamyelocyte 0.3 Absolute Myelocytes 0.1 Nucleated RBCs # 0 K/uL Sodium 136 (136-145) mmol/L Potassium 4.1 (3.5-5.1) mmol/L Chloride 102 (98-107) mmol/L Carbon Dioxide 27.9 (21.0-32.0) mmol/L BUN 6 L (7.0-18.0) mg/dL Creatinine 0.8 (0.6-1.0) mg/dL Est Cr Clr Drug Dosing 82.30 mL/min Estimated GFR (MDRD) > 60.0 ml/min Glucose 154 H (74-106) mg/dL Calcium 9.0 (8.5-10.1) mg/dL Result Diagrams: 04/20/21 05:28 04/20/21 05:28 Babar Results Last 24 hrs: Microbiology 04/18/21 19:20 Gram Stain - Final Wound 04/16/21 09:16 Aerobic Blood Culture - Preliminary Blood - Venous - Lab Draw NO GROWTH AFTER 4 DAYS Anaerobic Blood Culture - Preliminary NO GROWTH AFTER 4 DAYS 04/16/21 08:57 Aerobic Blood Culture - Preliminary Blood - Venous NO GROWTH AFTER 4 DAYS Anaerobic Blood Culture - Preliminary NO GROWTH AFTER 4 DAYS Sepsis Event Note - Evaluation Sepsis Screening Result: Possible Sepsis Risk - Focused Exam Vital Signs: Vital Signs Temp Pulse Resp BP Pulse Ox 04/20/21 12:00 87 13 115/65 95 04/20/21 08:09 36.7 C 96 16 118/63 96 04/20/21 04:00 36.5 C 92 20 116/71 95 - Problem List & Annotations (1) Cellulitis of arm, right SNOMED Code(s): 961899958 Code(s): L03.113 - CELLULITIS OF RIGHT UPPER LIMB Status: Acute Current Visit: Yes (2) History of PSVT (paroxysmal supraventricular tachycardia) SNOMED Code(s): 637925625515459 Code(s): Z86.79 - PERSONAL HISTORY OF OTHER DISEASES OF THE CIRCULATORY SYSTEM Status: Chronic Current Visit: Yes (3) Obesity, morbid, BMI 40.0-49.9 SNOMED Code(s): 719999303, 451107947, 28328074970281 Code(s): E66.01 - MORBID (SEVERE) OBESITY DUE TO EXCESS CALORIES Status: Chronic Current Visit: Yes (4) Polysubstance abuse SNOMED Code(s): 654987348 Code(s): F19.10 - OTHER PSYCHOACTIVE SUBSTANCE ABUSE, UNCOMPLICATED Status: Chronic Current Visit: Yes - Plan Plan:: This 40-year-old female admitted with sepsis along with right forearm cellulitis secondary to IV drug use 1. Sepsis with right forearm cellulitis -Slight improvement in swelling and erythema -CT of the arm obtained which shows Infiltration of the subcutaneous tissues which may relate to edema and/or cellulitis, no well-defined fluid collection, no soft tissue gas and no bony destruction suggestive of osteomyelitis. -Blood cultures negative so far -Continue vancomycin and Zosyn for broad spectrum coverage, white count is improving further -We will stop IV fluids for now to prevent fluid overload as patient is eating and drinking good, will reassess clinically daily -Elevate right arm -Oxycodone 5 mg every 4 hours as needed pain -Dilaudid as needed for pain -Zofran as needed nausea -Follow-up cultures from the drainage -May repeat CT scan tomorrow to rule out delayed focal abscess formation VTE prophylaxis: Lovenox CODE STATUS: Full code Dispo 2 to 3 days pending improvement. Patient was counseled that if there is an abscess formation she may need to be transferred to tertiary center as no orthopedic surgeon is available for drainage if needed. Patient verbalized understanding and agreement.
--- NOTE | 2021-04-20 16:05 | PCM.SN.2 ---
- Free Text/Narrative Note: Telephone call from Dr. Miranda on this date to discuss and review recent CT of upper extremity. There does appear to be a significant cellulitis but I don't see any discrete fluid collection. With the radiologic discussion of myositis, recommend discussion with Orthopedics. Thank you.
--- NOTE | 2021-04-20 16:51 | PCM.PN ---
- General Info Date of Service: 04/20/21 Admission Dx/Problem (Free Text): Admission Diagnosis/Problem Admission Diagnosis/Problem Cellulitis of arm Subjective Update: Patient seen at bedside, erythema is better swelling has gone down as well there is some swelling in the dorsal aspect of the arm which is most likely edema settling in due to gravity. Patient states the pain is better, leukocytosis is improving as well Functional Status: Reports: Tolerating Diet, Ambulating, Urinating - Review of Systems General: Denies: Fever, Weakness, Fatigue, Malaise Pulmonary: Denies: Shortness of Breath, Pleuritic Chest Pain Cardiovascular: Denies: Chest Pain, Palpitations, Dyspnea on Exertion Gastrointestinal: Denies: Abdominal Pain, Constipation, Decreased Appetite Genitourinary: Denies: Dysuria, Frequency, Burning Musculoskeletal: Reports: Arm Pain. Denies: Neck Pain, Shoulder Pain, Hand Pain, Back Pain Skin: Denies: Cyanosis, Jaundice, Mottled Neurological: Denies: Confusion, Dizziness, Headache - Patient Data Vitals - Most Recent: Last Vital Signs Temp 37.0 C 04/20/21 16:00 Pulse 90 04/20/21 16:00 Resp 15 04/20/21 16:00 BP 120/74 04/20/21 16:00 Pulse Ox 95 04/20/21 16:00 Weight - Most Recent: 131.542 kg I&O - Last 24 Hours: Intake & Output 04/20/21 04/20/21 04/20/21 06:59 14:59 22:59 Intake Total 1780 Output Total 600 Balance 1180 Lab Results Last 24 Hours: Laboratory Results - last 24 hr 04/20/21 04/20/21 Range/Units 05:28 05:28 WBC 12.70 H (4.0-11.0) K/uL RBC 4.08 L (4.30-5.90) M/uL Hgb 12.1 (12.0-16.0) g/dL Hct 35.9 L (36.0-46.0) % MCV 88.0 (80.0-98.0) fL MCH 29.7 (27.0-32.0) pg MCHC 33.7 (31.0-37.0) g/dL RDW Std Deviation 41.8 (28.0-62.0) fl RDW Coeff of Simona 13 (11.0-15.0) % Plt Count 338 (150-400) K/uL MPV 8.60 (7.40-12.00) fL Add Manual Diff YES Neutrophils % (Manual) 69 (48.0-80.0) % Band Neutrophils % 2 % Lymphocytes % (Manual) 18 (16.0-40.0) % Monocytes % (Manual) 6 (0.0-15.0) % Eosinophils % (Manual) 2 (0.0-7.0) % Metamyelocytes % 2 % Myelocytes % 1 % Nucleated RBC % 0.0 /100WBC Absolute Seg Neuts 8.8 H (1.4-5.7) Band Neutrophils # 0.3 Lymphocytes # (Manual) 2.3 (0.6-2.4) Monocytes # (Manual) 0.8 (0.0-0.8) Eosinophils # (Manual) 0.3 (0.0-0.7) Absolute Metamyelocyte 0.3 Absolute Myelocytes 0.1 Nucleated RBCs # 0 K/uL Sodium 136 (136-145) mmol/L Potassium 4.1 (3.5-5.1) mmol/L Chloride 102 (98-107) mmol/L Carbon Dioxide 27.9 (21.0-32.0) mmol/L BUN 6 L (7.0-18.0) mg/dL Creatinine 0.8 (0.6-1.0) mg/dL Est Cr Clr Drug Dosing 82.30 mL/min Estimated GFR (MDRD) > 60.0 ml/min Glucose 154 H (74-106) mg/dL Calcium 9.0 (8.5-10.1) mg/dL Babar Results Last 24 Hours: Microbiology 04/18/21 19:20 Gram Stain - Final Wound 04/16/21 09:16 Aerobic Blood Culture - Preliminary Blood - Venous - Lab Draw NO GROWTH AFTER 4 DAYS Anaerobic Blood Culture - Preliminary NO GROWTH AFTER 4 DAYS 04/16/21 08:57 Aerobic Blood Culture - Preliminary Blood - Venous NO GROWTH AFTER 4 DAYS Anaerobic Blood Culture - Preliminary NO GROWTH AFTER 4 DAYS Med Orders - Current: Current Medications Acetaminophen (Acetaminophen 325 Mg Tab) 650 mg PO Q4H PRN PRN Reason: Pain (Mild 1-3)/fever Last Admin: 04/20/21 08:11 Dose: 650 mg Documented by: Docusate Sodium (Docusate Sodium 100 Mg Cap) 100 mg PO BID PRN PRN Reason: Constipation Last Admin: 04/19/21 10:29 Dose: 100 mg Documented by: Enoxaparin Sodium (Enoxaparin 40 Mg/0.4 Ml Syringe) 40 mg SUBCUT Q12H [facility] Last Admin: 04/20/21 14:13 Dose: 40 mg Documented by: Hydromorphone HCl (Hydromorphone 1 Mg/Ml Syringe) 1 mg IVPUSH Q3H PRN PRN Reason: Pain Last Admin: 04/20/21 10:50 Dose: 1 mg Documented by: Piperacillin Sod/Tazobactam (Sod 3.375 gm/ Sodium Chloride) 50 mls @ 100 mls/hr IV Q6H [facility] Last Admin: 04/20/21 14:14 Dose: 100 mls/hr Documented by: Vancomycin HCl 1.75 gm/ Premix 350 mls @ 175 mls/hr IV Q8H [facility] Last Admin: 04/20/21 11:36 Dose: 175 mls/hr Documented by: Melatonin (Melatonin 3 Mg Tab) 6 mg PO BEDTIME PRN PRN Reason: Insomnia Last Admin: 04/19/21 21:11 Dose: 6 mg Documented by: Ondansetron HCl (Ondansetron 4 Mg/2 Ml Sdv) 4 mg IVPUSH Q4H PRN PRN Reason: Nausea Oxycodone HCl (Oxycodone 5 Mg Tab) 5 mg PO Q4H PRN PRN Reason: Pain Last Admin: 04/20/21 14:12 Dose: 5 mg Documented by: Sodium Chloride (Sodium Chloride 0.9% 2.5 Ml Syringe) 2.5 ml FLUSH ASDIRECTED PRN PRN Reason: Keep Vein Open Vancomycin HCl (Pharmacy To Dose - Vancomycin) 1 dose .XX ASDIRECTED CLAIRE Discontinued Medications Acetaminophen (Acetaminophen 325 Mg Tab) 650 mg PO NOW ONE Stop: 04/16/21 09:06 Last Admin: 04/16/21 09:11 Dose: 650 mg Documented by: Enoxaparin Sodium (Enoxaparin 40 Mg/0.4 Ml Syringe) 40 mg SUBCUT Q24H [facility] Last Admin: 04/16/21 16:25 Dose: 40 mg Documented by: Hydromorphone HCl (Hydromorphone 1 Mg/Ml Syringe) 1 mg IVPUSH ONETIME ONE Stop: 04/16/21 09:51 Last Admin: 04/16/21 10:08 Dose: 1 mg Documented by: Cefazolin Sodium/Dextrose 1 gm (/ Premix) 50 mls @ 100 mls/hr IV ONETIME ONE Stop: 04/16/21 09:08 Last Admin: 04/16/21 09:07 Dose: 100 mls/hr Documented by: Vancomycin HCl 1,000 mg/ (Sodium Chloride) 100 mls @ 100 mls/hr IV ONETIME ONE Stop: 04/16/21 09:37 Last Admin: 04/16/21 09:51 Dose: Not Given Documented by: Vancomycin HCl 1 gm/ Sodium (Chloride) 250 mls @ 250 mls/hr IV ONETIME ONE Stop: 04/16/21 10:29 Last Admin: 04/16/21 09:41 Dose: 250 mls/hr Documented by: Lactated Ringer's (Ringers, Lactated) 1,000 mls @ 125 mls/hr IV Q8H [facility] Last Admin: 04/19/21 06:47 Dose: 125 mls/hr Documented by: Lactated Ringer's (Ringers, Lactated) 1,000 mls @ 999 mls/hr IV .BOLUS ONE Stop: 04/16/21 14:52 Last Admin: 04/16/21 15:47 Dose: 999 mls/hr Documented by: Vancomycin HCl (Vancomycin 2 Gm/400 Ml) 400 mls @ 200 mls/hr IV Q12H [facility] Last Admin: 04/16/21 21:13 Dose: Not Given Documented by: Vancomycin HCl (Vancomycin 2 Gm/400 Ml) 400 mls @ 200 mls/hr IV Q12H [facility] Last Admin: 04/16/21 21:47 Dose: 200 mls/hr Documented by: Vancomycin HCl 2 gm/ Premix 400 mls @ 200 mls/hr IV Q12H [facility] Last Admin: 04/18/21 19:20 Dose: Not Given Documented by: Iopamidol (Iopamidol 755 Mg/Ml 500 Ml Multipack Bottle) 100 ml IVPUSH ONETIME STA Stop: 04/16/21 18:41 Last Admin: 04/16/21 18:40 Dose: 100 ml Documented by: Morphine Sulfate (Morphine 2 Mg/Ml Syringe) 2 mg IVPUSH Q4H PRN PRN Reason: Pain Last Admin: 04/16/21 16:21 Dose: 2 mg Documented by: Oxycodone HCl (Oxycodone 5 Mg Tab) 5 mg PO Q6H PRN PRN Reason: Pain Last Admin: 04/17/21 06:15 Dose: 5 mg Documented by: Oxycodone HCl (Oxycodone 5 Mg Tab) 10 mg PO Q4H PRN PRN Reason: Pain Sodium Chloride (Sodium Chloride 0.9% 10 Ml Syringe) 10 ml FLUSH ASDIRECTED PRN PRN Reason: Keep Vein Open Last Admin: 04/16/21 09:07 Dose: 10 ml Documented by: Sodium Chloride (Sodium Chloride 0.9% 2.5 Ml Syringe) 2.5 ml FLUSH ASDIRECTED PRN PRN Reason: Keep Vein Open Last Admin: 04/16/21 08:44 Dose: 2.5 ml Documented by: Tramadol HCl (Tramadol 50 Mg Tab) 50 mg PO ONETIME ONE Stop: 04/16/21 09:06 Last Admin: 04/16/21 09:11 Dose: 50 mg Documented by: - Exam Quality Assessment: Supplemental Oxygen General: Alert, Oriented Neck: Supple Lungs: Clear to Auscultation, Normal Respiratory Effort Cardiovascular: Regular Rate, Regular Rhythm GI/Abdominal Exam: Normal Bowel Sounds, Soft, Non-Tender Extremities: Arm Pain, Limited Range of Motion, Redness. No: Normal Inspection, Normal Range of Motion, Non-Tender Skin: Warm, Rash, Other (Erythema is improving so is swelling) - Patient Data Lab Results Last 24 hrs: Laboratory Results - last 24 hr 04/20/21 04/20/21 Range/Units 05:28 05:28 WBC 12.70 H (4.0-11.0) K/uL RBC 4.08 L (4.30-5.90) M/uL Hgb 12.1 (12.0-16.0) g/dL Hct 35.9 L (36.0-46.0) % MCV 88.0 (80.0-98.0) fL MCH 29.7 (27.0-32.0) pg MCHC 33.7 (31.0-37.0) g/dL RDW Std Deviation 41.8 (28.0-62.0) fl RDW Coeff of Simona 13 (11.0-15.0) % Plt Count 338 (150-400) K/uL MPV 8.60 (7.40-12.00) fL Add Manual Diff YES Neutrophils % (Manual) 69 (48.0-80.0) % Band Neutrophils % 2 % Lymphocytes % (Manual) 18 (16.0-40.0) % Monocytes % (Manual) 6 (0.0-15.0) % Eosinophils % (Manual) 2 (0.0-7.0) % Metamyelocytes % 2 % Myelocytes % 1 % Nucleated RBC % 0.0 /100WBC Absolute Seg Neuts 8.8 H (1.4-5.7) Band Neutrophils # 0.3 Lymphocytes # (Manual) 2.3 (0.6-2.4) Monocytes # (Manual) 0.8 (0.0-0.8) Eosinophils # (Manual) 0.3 (0.0-0.7) Absolute Metamyelocyte 0.3 Absolute Myelocytes 0.1 Nucleated RBCs # 0 K/uL Sodium 136 (136-145) mmol/L Potassium 4.1 (3.5-5.1) mmol/L Chloride 102 (98-107) mmol/L Carbon Dioxide 27.9 (21.0-32.0) mmol/L BUN 6 L (7.0-18.0) mg/dL Creatinine 0.8 (0.6-1.0) mg/dL Est Cr Clr Drug Dosing 82.30 mL/min Estimated GFR (MDRD) > 60.0 ml/min Glucose 154 H (74-106) mg/dL Calcium 9.0 (8.5-10.1) mg/dL Result Diagrams: 04/20/21 05:28 04/20/21 05:28 Babar Results Last 24 hrs: Microbiology 04/18/21 19:20 Gram Stain - Final Wound 04/16/21 09:16 Aerobic Blood Culture - Preliminary Blood - Venous - Lab Draw NO GROWTH AFTER 4 DAYS Anaerobic Blood Culture - Preliminary NO GROWTH AFTER 4 DAYS 04/16/21 08:57 Aerobic Blood Culture - Preliminary Blood - Venous NO GROWTH AFTER 4 DAYS Anaerobic Blood Culture - Preliminary NO GROWTH AFTER 4 DAYS Sepsis Event Note - Evaluation Sepsis Screening Result: Possible Sepsis Risk - Focused Exam Vital Signs: Vital Signs Temp Pulse Resp BP Pulse Ox 04/20/21 16:00 37.0 C 90 15 120/74 95 04/20/21 12:00 87 13 115/65 95 04/20/21 08:09 36.7 C 96 16 118/63 96 - Problem List & Annotations (1) Cellulitis of arm, right SNOMED Code(s): 070440815 Code(s): L03.113 - CELLULITIS OF RIGHT UPPER LIMB Status: Acute Current Visit: Yes (2) History of PSVT (paroxysmal supraventricular tachycardia) SNOMED Code(s): 514235886536060 Code(s): Z86.79 - PERSONAL HISTORY OF OTHER DISEASES OF THE CIRCULATORY SYSTEM Status: Chronic Current Visit: Yes (3) Obesity, morbid, BMI 40.0-49.9 SNOMED Code(s): 740315002, 589740113, 90319194968445 Code(s): E66.01 - MORBID (SEVERE) OBESITY DUE TO EXCESS CALORIES Status: Chronic Current Visit: Yes (4) Polysubstance abuse SNOMED Code(s): 985024784 Code(s): F19.10 - OTHER PSYCHOACTIVE SUBSTANCE ABUSE, UNCOMPLICATED Status: Chronic Current Visit: Yes - Problem List Review Problem List Initiated/Reviewed/Updated: Yes - Plan Plan:: This 40-year-old female admitted with sepsis along with right forearm cellulitis secondary to IV drug use 1. Sepsis with right forearm cellulitis -Significant improvement in swelling and erythema -Initial CT of the arm obtained which shows Infiltration of the subcutaneous tissues which may relate to edema and/or cellulitis, no well-defined fluid collection, no soft tissue gas and no bony destruction suggestive of osteomyelitis. Repeat CT scan noted shows a new 3.5x 1.5x 4 cm hypodense region within the per iphery of the proximal extensor musculature. Deep soft tissue findings are suspicious for myositis or phlegmon. Associated localized fasciitis is not excluded. -Blood cultures negative so far -Continue vancomycin and Zosyn for broad spectrum coverage, white count is improving further -We will stop IV fluids for now to prevent fluid overload as patient is eating and drinking good, will reassess clinically daily -Elevate right arm -Oxycodone 5 mg every 4 hours as needed pain -Dilaudid as needed for pain -Zofran as needed nausea -Follow-up cultures from the drainage -Given a repeat CAT scan findings I reached out to surgery who recommended consulting orthopedic surgeon for further recommendations. I did reach out to orthopedic at [facility], surgeon Dr. Stringer, he suggested continuing IV antibiotics for cellulitis,, he was rushing to surgery and said he currently cannot review the CT scan and said he would call me back to discuss the patient in detail as long as patient is hemodynamically stable she should be okay receiving IV antibiotics for now. I requested radiology to push the images to [facility]. Awaiting call back VTE prophylaxis: Lovenox CODE STATUS: Full code Dispo 2 to 3 days pending improvement. Patient was counseled that if there is an abscess formation she may need to be transferred to tertiary center as no orthopedic surgeon is available for drainage if needed. Patient verbalized understanding and agreement.
[2021-04-20] MEDS ORDERED: Iopamidol 755 MG/ML 500 ML Multipack Bottle IVPUSH STA (19:14)
--- NOTE | 2021-04-20 19:28 | PCM.SN.2 ---
- Free Text/Narrative Note: No call back from [facility] call at [facility], i reached out to [place] in [place], he review the images but states its hard to tell if patient needs I/D based on CT, he recommended to talk to general surgery, i informed him about general surgery not comfortable with this clinical scenario of possible myositis or fasciitis, he recommended transfer so he can clinically evaluate the patient for need of I/D at which point, we were informed by the stand by one call personnel that no beds are available for transfer in [place] or surrounding facilities. It was recommended to continue IV antibiotics and to talk to surgery again given there are no beds available in any hospitals for transfer. Given patient is clinically improving we can continue IV antibiotics for now till possible beds open up for transfer if necessary. I spoke to Dr Vazquez to reassess the patient, till we have a proper disposition. Unfortunately given the pandemic and lack of beds, all transfers are based/triaged on patients hemodynamic instability and acuity of clinical condition so there might be a delay in transfer if one is deemed necessary. In the mean time we will manage patient with IV antibiotics and consult surgery.
[2021-04-20] MEDS: Melatonin 3 MG Tab PO PRN (21:34)
[2021-04-21] MEDS: oxyCODONE 5 MG Tab PO PRN ×4 (00:03→14:26)
[2021-04-21] MEDS: HYDROmorphone 1 MG/ML Syringe IVPUSH PRN ×6 (02:05→17:25)
[2021-04-21] MEDS: Enoxaparin 40 MG/0.4 ML Syringe SUBCUT SCH (02:09)
[2021-04-21] MEDS: Piperacillin/Tazobactam 3.375 GM in Sodium Chloride 0.9% 50 ML IV SCH ×3 (02:11→13:28)
[2021-04-21] MEDS: VANCOmycin 1.75 GM/350 ML 1.75 GM in Premix Bag 1 BAG IV SCH ×2 (03:24→12:25)
[2021-04-21 07:38] LABS: BLOOD UREA NITROGEN,BUN 7 mg/dL (7.0-18.0); CARBON DIOXIDE,CO2 29.2 mmol/L (21.0-32.0); CHLORIDE,CL 101 mmol/L (98-107); GLUCOSE RANDOM 139 mg/dL (74-106); POTASSIUM,K 4.4 mmol/L (3.5-5.1); SODIUM,NA 134 mmol/L (136-145)
--- NOTE | 2021-04-21 10:12 | PCM.CONS ---
H&P History of Present Illness - General Date of Service: 04/21/21 Admit Problem/Dx: Admission Diagnosis/Problem Admission Diagnosis/Problem Cellulitis of arm Source of Information: Patient History Limitations: Reports: No Limitations - History of Present Illness Initial Comments - Free Text/Narative: Patient is a 40-year-old female who was admitted on April 16 with progressive cellulitis of her right arm. This followed self injection of methamphetamine, where apparently she missed the vein. She came in with a very significant cellulitis, although no obvious abscess was noted. I was asked to review the imaging studies from April 16. Upon her presentation and could not see any evidence of a discrete abscess or fluid collection. She has been treated with intravenous antibiotics and while the cellulitis has resolved. She has significant discomfort in the arm. A recent CT scan of her arm does suggest a myositis. Again, there is no discrete fluid collection noted. Suggestion was made based on the imaging studies that she might need incision and debridement. Symptom Onset Date: 04/16/21 Duration of Symptoms: Reports: Day(s): Location: Reports: Upper Extremity, Right Quality: Reports: Pressure Severity: Moderate Improves with: Reports: Rest Worsens with: Reports: Movement Associated Symptoms: Denies: Fever/Chills Right Arm Pain Score (Numeric/FACES): 5 - Related Data Allergies/Adverse Reactions: Allergies Allergy/AdvReac Type Severity Reaction Status Date / Time No Known Allergies Allergy Verified 04/18/21 05:52 Home Medications: Home Meds . [No Known Home Meds] 04/18/21 [History] Past Medical History - Past Health History Medical/Surgical History: Denies Medical/Surgical History HEENT History: Reports: None Cardiovascular History: Reports: None Respiratory History: Reports: None Gastrointestinal History: Reports: None Genitourinary History: Reports: None SPRAYER HAND History: Reports: Musculoskeletal History: Reports: None Neurological History: Reports: None Psychiatric History: Reports: Anxiety, Depression Endocrine/Metabolic History: Reports: None Hematologic History: Reports: None Immunologic History: Reports: None Oncologic (Cancer) History: Reports: None Dermatologic History: Reports: Cellulitis Other Dermatologic History: Current DX cellulitis. - Infectious Disease History Infectious Disease History: Reports: None - Past Surgical History Head Surgeries/Procedures: Reports: None Female Surgical History: Reports: D&C Social & Family History - Family History Family Medical History: No Pertinent Family History - Tobacco Use Tobacco Use Status *Q: Never Tobacco User Years of Tobacco use: 30 Packs/Tins Daily: 1 Second Hand Smoke Exposure: No - Caffeine Use Caffeine Use: Reports: Coffee, Soda Other Caffeine Use: 5 daily. - Recreational Drug Use Recreational Drug Use: Yes Drug Use in Last 12 Months: Yes Recreational Drug Type: Reports: Amphetamines (Speed), Marijuana/Hashish Recreational Drug Use Frequency: Daily - Living Situation & Occupation Living situation: Reports: with Family H&P Review of Systems - Review of Systems: Review Of Systems: See Below General: Denies: Fever, Chills, Malaise HEENT: Reports: No Symptoms Pulmonary: Denies: Shortness of Breath, Wheezing, Cough, Sputum Cardiovascular: Denies: Chest Pain, Palpitations, Dyspnea on Exertion Gastrointestinal: Denies: Abdominal Pain, Anorexia, Black Stool, Bloody Stool Genitourinary: Denies: Dysuria, Frequency, Burning, Pain, Urgency Musculoskeletal: Reports: Arm Pain Skin: Denies: Cyanosis, Jaundice, Mottled, Pallor Neurological: Denies: Confusion, Dizziness, Headache, Numbness Hematologic/Lymphatic: Reports: No Symptoms Immunologic: Reports: No Symptoms Exam - Exam Exam: See Below - Vital Signs Vital Signs: Last Vital Signs Temp 98.0 F 04/21/21 08:04 Pulse 85 04/21/21 08:04 Resp 16 04/21/21 08:04 BP 123/80 04/21/21 08:04 Pulse Ox 94 L 04/21/21 08:04 Weight: 290 lb 0.007 oz - Exam Quality Assessment: DVT Prophylaxis. No: Supplemental Oxygen, Central Line/PICC, Urinary Catheter General: Alert, Oriented, Cooperative, Mild Distress HEENT: Conjunctiva Clear, EACs Clear, Pupils Equal, Pupils Reactive. No: Scleral Icterus Neck: Supple, Trachea Midline Lungs: Clear to Auscultation, Normal Respiratory Effort. No: Rales, Wheezing Cardiovascular: Regular Rate, Regular Rhythm, Normal S1, Normal S2. No: Tachycardia, Systolic Murmur, Diastolic Murmur GI/Abdominal Exam: Normal Bowel Sounds, Soft, Non-Tender (Female) Exam: Deferred Rectal (Female) Exam: Deferred Back Exam: Normal Inspection Extremities: Joint Swelling (right elbow), Arm Pain, Limited Range of Motion, Increased Warmth Peripheral Pulses: 4+: Radial (R) Skin: Warm, Dry, Intact, Other (Cellulitis appears to be resolving. She does have an open wound in the right antecubital fossa. No foul odor noted.) Neurological: Cranial Nerves Intact Neuro Extensive - Mental Status: Alert, Oriented x3 Psychiatric: Alert, Normal Affect, Normal Mood - Patient Data Lab Results Last 24 hrs: Laboratory Results - last 24 hr 04/20/21 04/21/21 04/21/21 Range/Units 05:28 06:05 06:05 WBC 11.13 H (4.0-11.0) K/uL RBC 4.20 L (4.30-5.90) M/uL Hgb 12.4 (12.0-16.0) g/dL Hct 36.9 (36.0-46.0) % MCV 87.9 (80.0-98.0) fL MCH 29.5 (27.0-32.0) pg MCHC 33.6 (31.0-37.0) g/dL RDW Std Deviation 41.5 (28.0-62.0) fl RDW Coeff of Simona 13 (11.0-15.0) % Plt Count 350 (150-400) K/uL MPV 8.50 (7.40-12.00) fL Add Manual Diff YES Neutrophils % (Manual) 61 (48.0-80.0) % Band Neutrophils % 8 % Lymphocytes % (Manual) 24 (16.0-40.0) % Monocytes % (Manual) 2 (0.0-15.0) % Eosinophils % (Manual) 5 (0.0-7.0) % Nucleated RBC % 0.0 /100WBC Absolute Seg Neuts 6.8 H (1.4-5.7) Band Neutrophils # 0.9 Lymphocytes # (Manual) 2.7 H (0.6-2.4) Monocytes # (Manual) 0.2 (0.0-0.8) Eosinophils # (Manual) 0.6 (0.0-0.7) Nucleated RBCs # 0 K/uL Sodium 134 L (136-145) mmol/L Potassium 4.4 (3.5-5.1) mmol/L Chloride 101 (98-107) mmol/L Carbon Dioxide 29.2 (21.0-32.0) mmol/L BUN 7 (7.0-18.0) mg/dL Creatinine 0.8 (0.6-1.0) mg/dL Est Cr Clr Drug Dosing 82.30 mL/min Estimated GFR (MDRD) > 60.0 ml/min Glucose 139 H (74-106) mg/dL Calcium 9.1 (8.5-10.1) mg/dL Phosphorus 4.3 (2.6-4.7) mg/dL Magnesium 2.0 (1.8-2.4) mg/dL C-Reactive Protein 13.10 H 9.00 H (0.00-0.90) mg/dL Result Diagrams: 04/21/21 06:05 04/21/21 06:05 Babar Results Last 24 hrs: Microbiology 04/16/21 09:16 Aerobic Blood Culture - Final Blood - Venous - Lab Draw NO GROWTH AFTER 5 DAYS Anaerobic Blood Culture - Final NO GROWTH AFTER 5 DAYS 04/16/21 08:57 Aerobic Blood Culture - Final Blood - Venous NO GROWTH AFTER 5 DAYS Anaerobic Blood Culture - Final NO GROWTH AFTER 5 DAYS 04/18/21 19:20 Gram Stain - Final Wound Sepsis Event Note - Evaluation Sepsis Screening Result: No Definite Risk - Focused Exam Vital Signs: Vital Signs Temp Pulse Resp BP Pulse Ox 04/21/21 08:04 98.0 F 85 16 123/80 94 L 04/21/21 05:15 98.6 F 87 16 125/76 95 04/21/21 00:00 98.6 F 85 16 120/74 95 Consult PN Assessment/Plan Procedures: Procedures ASSAY OF FREE THYROXINE (01/29/20) ASSAY OF MAGNESIUM (01/29/20) ASSAY OF TROPONIN QUANT (01/08/20) ASSAY THYROID STIM HORMONE (01/29/20) COMPLETE CBC W/AUTO DIFF WBC (01/08/20) COMPREHEN METABOLIC PANEL (01/29/20) CREATINE MB FRACTION (10/29/18) CT ABD & PELV W/CONTRAST (10/29/18) CT CHEST SPINE W/O DYE (10/29/18) CT HEAD/BRAIN W/O DYE (10/29/18) CT LUMBAR SPINE W/O DYE (10/29/18) CT NECK SPINE W/O DYE (10/29/18) CT THORAX DX C+ (10/29/18) ELECTROCARDIOGRAM TRACING (10/29/18) EMERGENCY DEPT VISIT (01/08/20) EMERGENCY DEPT VISIT (10/29/18) GLYCOSYLATED HEMOGLOBIN TEST (01/29/20) HYDRATE IV INFUSION ADD-ON (01/08/20) LIPID PANEL (01/29/20) ROUTINE VENIPUNCTURE (01/29/20) THER/PROPH/DIAG INJ IV PUSH (01/08/20) X-RAY EXAM OF SHOULDER (10/29/18) (1) Cellulitis of arm, right SNOMED Code(s): 595429958 Code(s): L03.113 - CELLULITIS OF RIGHT UPPER LIMB Priority: High Current Visit: Yes (2) Sepsis SNOMED Code(s): 20519167 Code(s): A41.9 - SEPSIS, UNSPECIFIED ORGANISM Priority: Medium Current Visit: Yes Qualifiers: Sepsis acute organ dysfunction status: without acute organ dysfunction (3) IVDU (intravenous drug user) SNOMED Code(s): 249395914 Code(s): F19.90 - OTHER PSYCHOACTIVE SUBSTANCE USE, UNSPECIFIED, UNCOMPLICATED Priority: High Current Visit: Yes (4) Obesity, morbid, BMI 40.0-49.9 SNOMED Code(s): 032094010, 545167503, 20385258373483 Code(s): E66.01 - MORBID (SEVERE) OBESITY DUE TO EXCESS CALORIES Priority: Medium Current Visit: Yes (5) Polysubstance abuse SNOMED Code(s): 233115925 Code(s): F19.10 - OTHER PSYCHOACTIVE SUBSTANCE ABUSE, UNCOMPLICATED Priority: High Current Visit: Yes Problem List Initiated/Reviewed/Updated: Yes Plan: Given the concern for myositis and the limited range of motion in her elbow. I do think she would best be served by orthopedic consultation and possible incision and debridement. It would also be beneficial to have her and a larger facility where infectious disease experts are available. This information has been communicated to the patient and to her hospitalist team.
[2021-04-21] MEDS: Acetaminophen 325 MG Tab PO PRN ×2 (11:12→17:25)
--- NOTE | 2021-04-21 11:37 | PCM.PN ---
- General Info Date of Service: 04/21/21 Admission Dx/Problem (Free Text): Admission Diagnosis/Problem Admission Diagnosis/Problem Cellulitis of arm Subjective Update: Feeling okay this morning continues to have right arm pain. Able to move fingers and wrist along with right shoulder appropriately. Unable to extend right elbow due to significant pain and tightness. Denies any fevers or chills. Pain is tolerable with medication. Drainage noted to lateral aspect of antecubital joint space. Denies any chest pain shortness of breath. Eating and drinking okay feels slightly constipated but did have bowel movement yesterday Colace continued. Continued to be counseled and encouraged to keep arm elevated. Functional Status: Reports: Pain Controlled, Tolerating Diet, Ambulating, Urinating - Review of Systems General: Reports: No Symptoms. Denies: Fever Pulmonary: Reports: No Symptoms. Denies: Shortness of Breath Cardiovascular: Reports: No Symptoms. Denies: Chest Pain Gastrointestinal: Reports: No Symptoms. Denies: Abdominal Pain, Nausea, Vomiting Genitourinary: Reports: No Symptoms. Denies: Dysuria, Frequency, Burning Musculoskeletal: Reports: Arm Pain (Right arm) Skin: Reports: Other (Right antecubital space wound is draining slight purulent drainage with dusky tissue around) Neurological: Reports: No Symptoms Psychiatric: Reports: No Symptoms - Patient Data Vitals - Most Recent: Last Vital Signs Temp 98.0 F 04/21/21 08:04 Pulse 85 04/21/21 08:04 Resp 16 04/21/21 08:04 BP 123/80 04/21/21 08:04 Pulse Ox 94 L 04/21/21 08:04 Weight - Most Recent: 131.542 kg I&O - Last 24 Hours: Intake & Output 04/20/21 04/21/21 04/21/21 22:59 06:59 14:59 Intake Total 900 Output Total 1200 Balance -300 Lab Results Last 24 Hours: Laboratory Results - last 24 hr 04/20/21 04/21/21 04/21/21 Range/Units 05:28 06:05 06:05 WBC 11.13 H (4.0-11.0) K/uL RBC 4.20 L (4.30-5.90) M/uL Hgb 12.4 (12.0-16.0) g/dL Hct 36.9 (36.0-46.0) % MCV 87.9 (80.0-98.0) fL MCH 29.5 (27.0-32.0) pg MCHC 33.6 (31.0-37.0) g/dL RDW Std Deviation 41.5 (28.0-62.0) fl RDW Coeff of Simona 13 (11.0-15.0) % Plt Count 350 (150-400) K/uL MPV 8.50 (7.40-12.00) fL Add Manual Diff YES Neutrophils % (Manual) 61 (48.0-80.0) % Band Neutrophils % 8 % Lymphocytes % (Manual) 24 (16.0-40.0) % Monocytes % (Manual) 2 (0.0-15.0) % Eosinophils % (Manual) 5 (0.0-7.0) % Nucleated RBC % 0.0 /100WBC Absolute Seg Neuts 6.8 H (1.4-5.7) Band Neutrophils # 0.9 Lymphocytes # (Manual) 2.7 H (0.6-2.4) Monocytes # (Manual) 0.2 (0.0-0.8) Eosinophils # (Manual) 0.6 (0.0-0.7) Nucleated RBCs # 0 K/uL Sodium 134 L (136-145) mmol/L Potassium 4.4 (3.5-5.1) mmol/L Chloride 101 (98-107) mmol/L Carbon Dioxide 29.2 (21.0-32.0) mmol/L BUN 7 (7.0-18.0) mg/dL Creatinine 0.8 (0.6-1.0) mg/dL Est Cr Clr Drug Dosing 82.30 mL/min Estimated GFR (MDRD) > 60.0 ml/min Glucose 139 H (74-106) mg/dL Calcium 9.1 (8.5-10.1) mg/dL Phosphorus 4.3 (2.6-4.7) mg/dL Magnesium 2.0 (1.8-2.4) mg/dL C-Reactive Protein 13.10 H 9.00 H (0.00-0.90) mg/dL Babar Results Last 24 Hours: Microbiology 04/18/21 19:20 Miscellaneous Reference Culture - Preliminary Wound Gram Stain - Final 04/16/21 09:16 Aerobic Blood Culture - Final Blood - Venous - Lab Draw NO GROWTH AFTER 5 DAYS Anaerobic Blood Culture - Final NO GROWTH AFTER 5 DAYS 04/16/21 08:57 Aerobic Blood Culture - Final Blood - Venous NO GROWTH AFTER 5 DAYS Anaerobic Blood Culture - Final NO GROWTH AFTER 5 DAYS Med Orders - Current: Current Medications Acetaminophen (Acetaminophen 325 Mg Tab) 650 mg PO Q4H PRN PRN Reason: Pain (Mild 1-3)/fever Last Admin: 04/21/21 11:12 Dose: 650 mg Documented by: Docusate Sodium (Docusate Sodium 100 Mg Cap) 100 mg PO BID PRN PRN Reason: Constipation Last Admin: 04/19/21 10:29 Dose: 100 mg Documented by: Hydromorphone HCl (Hydromorphone 1 Mg/Ml Syringe) 1 mg IVPUSH Q3H PRN PRN Reason: Pain Last Admin: 04/21/21 11:12 Dose: 1 mg Documented by: Piperacillin Sod/Tazobactam (Sod 3.375 gm/ Sodium Chloride) 50 mls @ 100 mls/hr IV Q6H [facility] Last Admin: 04/21/21 08:22 Dose: 100 mls/hr Documented by: Vancomycin HCl 1.75 gm/ Premix 350 mls @ 175 mls/hr IV Q8H [facility] Last Admin: 04/21/21 03:24 Dose: 175 mls/hr Documented by: Melatonin (Melatonin 3 Mg Tab) 6 mg PO BEDTIME PRN PRN Reason: Insomnia Last Admin: 04/20/21 21:34 Dose: 6 mg Documented by: Ondansetron HCl (Ondansetron 4 Mg/2 Ml Sdv) 4 mg IVPUSH Q4H PRN PRN Reason: Nausea Oxycodone HCl (Oxycodone 5 Mg Tab) 5 mg PO Q4H PRN PRN Reason: Pain Last Admin: 04/21/21 08:23 Dose: 5 mg Documented by: Sodium Chloride (Sodium Chloride 0.9% 2.5 Ml Syringe) 2.5 ml FLUSH ASDIRECTED PRN PRN Reason: Keep Vein Open Vancomycin HCl (Pharmacy To Dose - Vancomycin) 1 dose .XX ASDIRECTED CLAIRE Discontinued Medications Acetaminophen (Acetaminophen 325 Mg Tab) 650 mg PO NOW ONE Stop: 04/16/21 09:06 Last Admin: 04/16/21 09:11 Dose: 650 mg Documented by: Enoxaparin Sodium (Enoxaparin 40 Mg/0.4 Ml Syringe) 40 mg SUBCUT Q24H [facility] Last Admin: 04/16/21 16:25 Dose: 40 mg Documented by: Enoxaparin Sodium (Enoxaparin 40 Mg/0.4 Ml Syringe) 40 mg SUBCUT Q12H [facility] Last Admin: 04/21/21 02:09 Dose: 40 mg Documented by: Hydromorphone HCl (Hydromorphone 1 Mg/Ml Syringe) 1 mg IVPUSH ONETIME ONE Stop: 04/16/21 09:51 Last Admin: 04/16/21 10:08 Dose: 1 mg Documented by: Cefazolin Sodium/Dextrose 1 gm (/ Premix) 50 mls @ 100 mls/hr IV ONETIME ONE Stop: 04/16/21 09:08 Last Admin: 04/16/21 09:07 Dose: 100 mls/hr Documented by: Vancomycin HCl 1,000 mg/ (Sodium Chloride) 100 mls @ 100 mls/hr IV ONETIME ONE Stop: 04/16/21 09:37 Last Admin: 04/16/21 09:51 Dose: Not Given Documented by: Vancomycin HCl 1 gm/ Sodium (Chloride) 250 mls @ 250 mls/hr IV ONETIME ONE Stop: 04/16/21 10:29 Last Admin: 04/16/21 09:41 Dose: 250 mls/hr Documented by: Lactated Ringer's (Ringers, Lactated) 1,000 mls @ 125 mls/hr IV Q8H [facility] Last Admin: 04/19/21 06:47 Dose: 125 mls/hr Documented by: Lactated Ringer's (Ringers, Lactated) 1,000 mls @ 999 mls/hr IV .BOLUS ONE Stop: 04/16/21 14:52 Last Admin: 04/16/21 15:47 Dose: 999 mls/hr Documented by: Vancomycin HCl (Vancomycin 2 Gm/400 Ml) 400 mls @ 200 mls/hr IV Q12H [facility] Last Admin: 04/16/21 21:13 Dose: Not Given Documented by: Vancomycin HCl (Vancomycin 2 Gm/400 Ml) 400 mls @ 200 mls/hr IV Q12H [facility] Last Admin: 09/09/21 21:47 Dose: 200 mls/hr Documented by: Vancomycin HCl 2 gm/ Premix 400 mls @ 200 mls/hr IV Q12H [facility] Last Admin: 04/18/21 19:20 Dose: Not Given Documented by: Iopamidol (Iopamidol 755 Mg/Ml 500 Ml Multipack Bottle) 100 ml IVPUSH ONETIME STA Stop: 04/16/21 18:41 Last Admin: 04/16/21 18:40 Dose: 100 ml Documented by: Iopamidol (Iopamidol 755 Mg/Ml 500 Ml Multipack Bottle) 100 ml IVPUSH ONETIME STA Stop: 04/20/21 19:15 Last Admin: 04/20/21 19:15 Dose: 100 ml Documented by: Morphine Sulfate (Morphine 2 Mg/Ml Syringe) 2 mg IVPUSH Q4H PRN PRN Reason: Pain Last Admin: 04/16/21 16:21 Dose: 2 mg Documented by: Oxycodone HCl (Oxycodone 5 Mg Tab) 5 mg PO Q6H PRN PRN Reason: Pain Last Admin: 04/17/21 06:15 Dose: 5 mg Documented by: Oxycodone HCl (Oxycodone 5 Mg Tab) 10 mg PO Q4H PRN PRN Reason: Pain Sodium Chloride (Sodium Chloride 0.9% 10 Ml Syringe) 10 ml FLUSH ASDIRECTED PRN PRN Reason: Keep Vein Open Last Admin: 04/16/21 09:07 Dose: 10 ml Documented by: Sodium Chloride (Sodium Chloride 0.9% 2.5 Ml Syringe) 2.5 ml FLUSH ASDIRECTED PRN PRN Reason: Keep Vein Open Last Admin: 04/16/21 08:44 Dose: 2.5 ml Documented by: Tramadol HCl (Tramadol 50 Mg Tab) 50 mg PO ONETIME ONE Stop: 04/16/21 09:06 Last Admin: 04/16/21 09:11 Dose: 50 mg Documented by: - Exam General: Alert, Oriented, Cooperative, No Acute Distress Lungs: Clear to Auscultation, Normal Respiratory Effort Cardiovascular: Regular Rate, Regular Rhythm GI/Abdominal Exam: Normal Bowel Sounds, Soft, Non-Tender Extremities: No Pedal Edema, Arm Pain, Increased Warmth, Other (Erythema and cellulitis continue to improve to right arm. More localized to right lateral antecubital space. Draining wound with slight purulence noted significant induration arms. No fluctuance noted.). No: Normal Range of Motion (Unable to fully extend right arm at elbow) Neurological: No New Focal Deficit Psy/Mental Status: Alert, Normal Affect, Normal Mood - Patient Data Lab Results Last 24 hrs: Laboratory Results - last 24 hr 04/20/21 04/21/21 04/21/21 Range/Units 05:28 06:05 06:05 WBC 11.13 H (4.0-11.0) K/uL RBC 4.20 L (4.30-5.90) M/uL Hgb 12.4 (12.0-16.0) g/dL Hct 36.9 (36.0-46.0) % MCV 87.9 (80.0-98.0) fL MCH 29.5 (27.0-32.0) pg MCHC 33.6 (31.0-37.0) g/dL RDW Std Deviation 41.5 (28.0-62.0) fl RDW Coeff of Simona 13 (11.0-15.0) % Plt Count 350 (150-400) K/uL MPV 8.50 (7.40-12.00) fL Add Manual Diff YES Neutrophils % (Manual) 61 (48.0-80.0) % Band Neutrophils % 8 % Lymphocytes % (Manual) 24 (16.0-40.0) % Monocytes % (Manual) 2 (0.0-15.0) % Eosinophils % (Manual) 5 (0.0-7.0) % Nucleated RBC % 0.0 /100WBC Absolute Seg Neuts 6.8 H (1.4-5.7) Band Neutrophils # 0.9 Lymphocytes # (Manual) 2.7 H (0.6-2.4) Monocytes # (Manual) 0.2 (0.0-0.8) Eosinophils # (Manual) 0.6 (0.0-0.7) Nucleated RBCs # 0 K/uL Sodium 134 L (136-145) mmol/L Potassium 4.4 (3.5-5.1) mmol/L Chloride 101 (98-107) mmol/L Carbon Dioxide 29.2 (21.0-32.0) mmol/L BUN 7 (7.0-18.0) mg/dL Creatinine 0.8 (0.6-1.0) mg/dL Est Cr Clr Drug Dosing 82.30 mL/min Estimated GFR (MDRD) > 60.0 ml/min Glucose 139 H (74-106) mg/dL Calcium 9.1 (8.5-10.1) mg/dL Phosphorus 4.3 (2.6-4.7) mg/dL Magnesium 2.0 (1.8-2.4) mg/dL C-Reactive Protein 13.10 H 9.00 H (0.00-0.90) mg/dL Result Diagrams: 04/21/21 06:05 04/21/21 06:05 Babar Results Last 24 hrs: Microbiology 04/18/21 19:20 Miscellaneous Reference Culture - Preliminary Wound Gram Stain - Final 04/16/21 09:16 Aerobic Blood Culture - Final Blood - Venous - Lab Draw NO GROWTH AFTER 5 DAYS Anaerobic Blood Culture - Final NO GROWTH AFTER 5 DAYS 04/16/21 08:57 Aerobic Blood Culture - Final Blood - Venous NO GROWTH AFTER 5 DAYS Anaerobic Blood Culture - Final NO GROWTH AFTER 5 DAYS Sepsis Event Note - Evaluation Sepsis Screening Result: No Definite Risk - Focused Exam Vital Signs: Vital Signs Temp Pulse Resp BP Pulse Ox 04/21/21 08:04 98.0 F 85 16 123/80 94 L 04/21/21 05:15 98.6 F 87 16 125/76 95 04/21/21 00:00 98.6 F 85 16 120/74 95 - Problem List & Annotations (1) Sepsis SNOMED Code(s): 44485810 Code(s): A41.9 - SEPSIS, UNSPECIFIED ORGANISM Status: Acute Priority: Med ium Current Visit: Yes Qualifiers: Sepsis acute organ dysfunction status: without acute organ dysfunction (2) Cellulitis of arm, right SNOMED Code(s): 668459332 Code(s): L03.113 - CELLULITIS OF RIGHT UPPER LIMB Status: Acute Priority: High Current Visit: Yes (3) IVDU (intravenous drug user) SNOMED Code(s): 971495076 Code(s): F19.90 - OTHER PSYCHOACTIVE SUBSTANCE USE, UNSPECIFIED, UNCOMPLICATED Status: Chronic Priority: High Current Visit: Yes (4) Polysubstance abuse SNOMED Code(s): 541975691 Code(s): F19.10 - OTHER PSYCHOACTIVE SUBSTANCE ABUSE, UNCOMPLICATED Status: Chronic Priority: High Current Visit: Yes (5) Obesity, morbid, BMI 40.0-49.9 SNOMED Code(s): 778505403, 607620297, 72760689959038 Code(s): E66.01 - MORBID (SEVERE) OBESITY DUE TO EXCESS CALORIES Status: Chronic Priority: Medium Current Visit: Yes (6) History of PSVT (paroxysmal supraventricular tachycardia) SNOMED Code(s): 171581426574988 Code(s): Z86.79 - PERSONAL HISTORY OF OTHER DISEASES OF THE CIRCULATORY SYSTEM Status: Chronic Current Visit: Yes - Problem List Review Problem List Initiated/Reviewed/Updated: Yes - My Orders Last 24 Hours: My Active Orders 04/21/21 10:06 Wound Care [RC] Q12H - Plan Plan:: This 40-year-old female admitted with sepsis along with right forearm cellulitis secondary to IV drug use 1. Sepsis with right forearm cellulitis -Significant improvement in swelling and erythema -Initial CT of the arm obtained which shows Infiltration of the subcutaneous tissues which may relate to edema and/or cellulitis, no well-defined fluid collection, no soft tissue gas and no bony destruction suggestive of osteomyelitis. Repeat CT scan noted shows a new 3.5x 1.5x 4 cm hypodense region within the periphery of the proximal extensor musculature. Deep soft tissue findings are suspicious for myositis or phlegmon. Associated localized fasciitis is not excluded. -Blood cultures negative so far -Continue vancomycin and Zosyn for broad spectrum coverage, white count continues to improve -Elevate right arm -Oxycodone 5 mg every 4 hours as needed pain -Dilaudid as needed for pain -Zofran as needed nausea -Cultures of drainage so far negative continue to follow daily -Given CT scan findings transfer has been attempted as of 04/20/2021 as well as today 04/21/2021. General surgery reconsult for official consult. They do not feel comfortable with this patient being a surgical candidate here no orthopedic coverage. I have attempted to call multiple facilities within the [facility] including hospitals in [place], both [facility] in [place] and [facility] in [place]. [facility] potentially has a bed available later today. We will keep in contact with him. Patient has been updated regarding situation. We will continue IV antibiotics at this time. -Dressing to draining wound to include Telfa clean with soap and water. Change every 12 and as needed for saturation. VTE prophylaxis: Lovenox CODE STATUS: Full code Dispo 2 to 3 days pending improvement. Attempting possible transfer at this time no bed availability due to current pandemic situation.
[2021-04-21] MEDS ORDERED: VANCOmycin 1.75 GM/350 ML 1.75 GM in Premix Bag 1 BAG IV SCH (15:30)
--- NOTE | 2021-04-21 17:07 | PCM.DCSUM1 ---
Discharge Summary - Hospital Course Brief History: This 40-year-old female with past medical history of 23 years of methamphetamine use both inhaled and injected presents to the ER with right arm redness swelling and generalized fatigue and malaise at home with intermittent fevers. She reports that approximately 3 days ago she injected into the right AC and new right away that she had missed a vein. She reports that 24 hours later she noticed redness warmth and tenderness to this area and this has then progressed significantly over the last 2 days to significant redness erythema and pain. She denies any joint pain of her elbow wrist or fingers and no shoulder pain. She reports no drainage. She reports fevers and chills and generalized malaise feeling. Denies any abdominal pain. Mild nausea no diarrhea or constipation. No black or bloody bowel movements. She reports most recent use of inhaled methamphetamine was this morning. She reports last time she injected was 3 days ago during this event. She denies any alcohol or tobacco use. In the ER leukocytosis noted at 23,000 platelets 328,000. BMP within normal limits. Ultrasound of the arm obtained no venous thrombosis noted demonstration of marked edema and questionable development of abscess versus hematoma within the proximal forearm soft tissues. Patient was treated with Ancef and vancomycin in the ER and then she left AGAINST MEDICAL ADVICE when asked regarding admission. She then went home and talked with a friend who encouraged her to be admitted. She returned and was directly admitted for cellulitis of the right arm. Dr. Vazquez was asked to review images at this time no abscess is noted to be drained and if there was an abscess she may need to be transferred for orthopedic surgery to perform this. But agreed she was in need of intravenous antibiotics. - Discharge Data Discharge Date: 04/21/21 Discharge Disposition: DC/Tfer to Acute Hospital 02 Condition: Good - Referral to Home Health Primary Care Physician: PCP None - Discharge Diagnosis/Problem(s) (1) Sepsis SNOMED Code(s): 29200057 ICD Code: A41.9 - SEPSIS, UNSPECIFIED ORGANISM Status: Resolved Priority: Medium Current Visit: Yes Qualifiers: Sepsis acute organ dysfunction status: without acute organ dysfunction (2) Cellulitis of arm, right SNOMED Code(s): 699190313 ICD Code: L03.113 - CELLULITIS OF RIGHT UPPER LIMB Status: Acute Priority: High Current Visit: Yes (3) IVDU (intravenous drug user) SNOMED Code(s): 299033680 ICD Code: F19.90 - OTHER PSYCHOACTIVE SUBSTANCE USE, UNSPECIFIED, UNCOMPLICATED Status: Chronic Priority: High Current Visit: Yes (4) Polysubstance abuse SNOMED Code(s): 788612177 ICD Code: F19.10 - OTHER PSYCHOACTIVE SUBSTANCE ABUSE, UNCOMPLICATED Status: Chronic Priority: High Current Visit: Yes (5) Obesity, morbid, BMI 40.0-49.9 SNOMED Code(s): 026345554, 086504994, 03911389618903 ICD Code: E66.01 - MORBID (SEVERE) OBESITY DUE TO EXCESS CALORIES Status: Chronic Priority: Medium Current Visit: Yes (6) History of PSVT (paroxysmal supraventricular tachycardia) SNOMED Code(s): 315469028894415 ICD Code: Z86.79 - PERSONAL HISTORY OF OTHER DISEASES OF THE CIRCULATORY SYSTEM Status: Chronic Current Visit: Yes - Patient Summary/Data Consults: Consultations 04/20/21 19:03 Consult to Physician [CONS] Routine Hospital Course: Admission diagnoses Right arm cellulitis Sepsis IV drug use Discharge diagnoses Sepsis resolved Right arm cellulitis, improving suspicion for abscess formation This 40-year-old female admitted on 04/16/2021 for right arm cellulitis status post IV drug use was treated with broad-spectrum antibiotics including Zosyn and vancomycin. Blood cultures obtained at that time have returned negative since. Sepsis has resolved. Leukocytosis has resolved to nearly normal at 12,000 today. Patient vital signs have remained stable. Patient cellulitis has continued to improve steadily pain well controlled with Dilaudid as well as oxycodone. Patient has had more localization of infection to right lateral antecubital space. Drainage has started with mild purulence swab was taken and is currently pending Gram stain shows no growth at this time and no organisms. Repeat CT with obtained yesterday 04/20/2021 which is showing new or more conspicuous wound in the right proximal forearm underlying wound is localized could fluid infiltration of subcutaneous fat extending to a new 3.5 x 1.5 x 4 cm hypodense region within the peripheral of the proximal extensor musculature. Deep soft tissue findings are suspicious for myositis or abscess. No well- defined fluid collection and subcutaneous fat induration elsewhere in the right arm is similar to prior exam. At this time transfer was attempted 04/20/2021 but no bed availability and no accepting physician was available. General surgery was consulted and has since seen patient and felt that she is not a good candidate for surgical aspiration here as there is no orthopedic surgeon available and there is possible deep infection within the upper extremity. Patient has no pain with movement of wrist or fingers or shoulder of the right arm but is unable to extend at the elbow. Today again transfer was attempted in [place], [facility] in the morning as well as [place]. No bed availability or orthopedics unavailable. This afternoon a bed became available in [facility]. I spoke with Dr. Arreguin who has kindly accepted patient to their hospitalist service and they will consult orthopedics. Patient's Lovenox has been held since 2 in the morning for possible surgical intervention. We will make patient n.p.o. at this time for again possible surgical intervention. Nursing materials management supervisor as well as charge nurse notified of transfer. At this time there is no available ALS ground ambulance and it will be greater than 12 hours before anything is available. Due to possible nerve damage and need for more urgent surgical intervention patient will be transferred via flight to [facility] at this time. We will notify [facility] one call with new ETA when available. Patient to be transferred to this evening. Dr. Miranda made aware. - Patient Instructions Diet: NPO - Discharge Plan *PRESCRIPTION DRUG MONITORING PROGRAM REVIEWED*: Not Applicable *COPY OF PRESCRIPTION DRUG MONITORING REPORT IN PATIENT KEYSHAWN: Not Applicable Home Medications: Home Meds . [No Known Home Meds] 04/18/21 [History] Oxygen Therapy Mode: Room Air Patient Handouts: Cellulitis, Adult, Acute Compartment Syndrome, Acetaminophen; Oxycodone tablets, Substance Use Disorder, Cephalexin Tablets or Capsules, Finding Treatment for Addiction, Sulfamethoxazole; Trimethoprim, SMX-TMP tablets - Discharge Summary/Plan Comment DC Time >30 min.: Yes Total # of Minutes for Discharge Time: 25 - Patient Data Vitals - Most Recent: Last Vital Signs Temp 98.5 F 04/21/21 16:00 Pulse 83 04/21/21 16:00 Resp 18 04/21/21 16:00 BP 126/70 04/21/21 16:00 Pulse Ox 96 04/21/21 16:00 Weight - Most Recent: 131.542 kg I&O - Last 24 hours: Intake & Output 04/21/21 04/21/21 04/21/21 06:59 14:59 22:59 Intake Total 900 Output Total 1200 Balance -300 Lab Results - Last 24 hrs: Laboratory Results - last 24 hr 04/20/21 04/21/21 04/21/21 Range/Units 05:28 06:05 06:05 WBC 11.13 H (4.0-11.0) K/uL RBC 4.20 L (4.30-5.90) M/uL Hgb 12.4 (12.0-16.0) g/dL Hct 36.9 (36.0-46.0) % MCV 87.9 (80.0-98.0) fL MCH 29.5 (27.0-32.0) pg MCHC 33.6 (31.0-37.0) g/dL RDW Std Deviation 41.5 (28.0-62.0) fl RDW Coeff of Simona 13 (11.0-15.0) % Plt Count 350 (150-400) K/uL MPV 8.50 (7.40-12.00) fL Add Manual Diff YES Neutrophils % (Manual) 61 (48.0-80.0) % Band Neutrophils % 8 % Lymphocytes % (Manual) 24 (16.0-40.0) % Monocytes % (Manual) 2 (0.0-15.0) % Eosinophils % (Manual) 5 (0.0-7.0) % Nucleated RBC % 0.0 /100WBC Absolute Seg Neuts 6.8 H (1.4-5.7) Band Neutrophils # 0.9 Lymphocytes # (Manual) 2.7 H (0.6-2.4) Monocytes # (Manual) 0.2 (0.0-0.8) Eosinophils # (Manual) 0.6 (0.0-0.7) Nucleated RBCs # 0 K/uL Sodium 134 L (136-145) mmol/L Potassium 4.4 (3.5-5.1) mmol/L Chloride 101 (98-107) mmol/L Carbon Dioxide 29.2 (21.0-32.0) mmol/L BUN 7 (7.0-18.0) mg/dL Creatinine 0.8 (0.6-1.0) mg/dL Est Cr Clr Drug Dosing 82.30 mL/min Estimated GFR (MDRD) > 60.0 ml/min Glucose 139 H (74-106) mg/dL Calcium 9.1 (8.5-10.1) mg/dL Phosphorus 4.3 (2.6-4.7) mg/dL Magnesium 2.0 (1.8-2.4) mg/dL C-Reactive Protein 13.10 H 9.00 H (0.00-0.90) mg/dL Vancomycin Trough (5.0-10.0) ug/mL 04/21/21 Range/Units 10:45 WBC (4.0-11.0) K/uL RBC (4.30-5.90) M/uL Hgb (12.0-16.0) g/dL Hct (36.0-46.0) % MCV (80.0-98.0) fL MCH (27.0-32.0) pg MCHC (31.0-37.0) g/dL RDW Std Deviation (28.0-62.0) fl RDW Coeff of Simona (11.0-15.0) % Plt Count (150-400) K/uL MPV (7.40-12.00) fL Add Manual Diff Neutrophils % (Manual) (48.0-80.0) % Band Neutrophils % % Lymphocytes % (Manual) (16.0-40.0) % Monocytes % (Manual) (0.0-15.0) % Eosinophils % (Manual) (0.0-7.0) % Nucleated RBC % /100WBC Absolute Seg Neuts (1.4-5.7) Band Neutrophils # Lymphocytes # (Manual) (0.6-2.4) Monocytes # (Manual) (0.0-0.8) Eosinophils # (Manual) (0.0-0.7) Nucleated RBCs # K/uL Sodium (136-145) mmol/L Potassium (3.5-5.1) mmol/L Chloride (98-107) mmol/L Carbon Dioxide (21.0-32.0) mmol/L BUN (7.0-18.0) mg/dL Creatinine (0.6-1.0) mg/dL Est Cr Clr Drug Dosing mL/min Estimated GFR (MDRD) ml/min Glucose (74-106) mg/dL Calcium (8.5-10.1) mg/dL Phosphorus (2.6-4.7) mg/dL Magnesium (1.8-2.4) mg/dL C-Reactive Protein (0.00-0.90) mg/dL Vancomycin Trough 22.4 H (5.0-10.0) ug/mL PADMAJA Results - Last 24 hrs: Microbiology 04/18/21 19:20 Miscellaneous Reference Culture - Preliminary Wound Gram Stain - Final 04/16/21 09:16 Aerobic Blood Culture - Final Blood - Venous - Lab Draw NO GROWTH AFTER 5 DAYS Anaerobic Blood Culture - Final NO GROWTH AFTER 5 DAYS 04/16/21 08:57 Aerobic Blood Culture - Final Blood - Venous NO GROWTH AFTER 5 DAYS Anaerobic Blood Culture - Final NO GROWTH AFTER 5 DAYS Med Orders - Current: Current Medications Acetaminophen (Acetaminophen 325 Mg Tab) 650 mg PO Q4H PRN PRN Reason: Pain (Mild 1-3)/fever Last Admin: 04/21/21 11:12 Dose: 650 mg Documented by: Docusate Sodium (Docusate Sodium 100 Mg Cap) 100 mg PO BID PRN PRN Reason: Constipation Last Admin: 04/19/21 10:29 Dose: 100 mg Documented by: Hydromorphone HCl (Hydromorphone 1 Mg/Ml Syringe) 1 mg IVPUSH Q3H PRN PRN Reason: Pain Last Admin: 04/21/21 14:25 Dose: 1 mg Documented by: Piperacillin Sod/Tazobactam (Sod 3.375 gm/ Sodium Chloride) 50 mls @ 100 mls/hr IV Q6H [facility] Last Admin: 04/21/21 13:28 Dose: 100 mls/hr Documented by: Vancomycin HCl 1.75 gm/ Premix 350 mls @ 175 mls/hr IV Q12H [facility] Last Admin: 04/21/21 15:04 Dose: 175 mls/hr Documented by: Melatonin (Melatonin 3 Mg Tab) 6 mg PO BEDTIME PRN PRN Reason: Insomnia Last Admin: 04/20/21 21:34 Dose: 6 mg Documented by: Ondansetron HCl (Ondansetron 4 Mg/2 Ml Sdv) 4 mg IVPUSH Q4H PRN PRN Reason: Nausea Oxycodone HCl (Oxycodone 5 Mg Tab) 5 mg PO Q4H PRN PRN Reason: Pain Last Admin: 04/21/21 14:26 Dose: 5 mg Documented by: Sodium Chloride (Sodium Chloride 0.9% 2.5 Ml Syringe) 2.5 ml FLUSH ASDIRECTED PRN PRN Reason: Keep Vein Open Vancomycin HCl (Pharmacy To Dose - Vancomycin) 1 dose .XX ASDIRECTED CLAIRE Discontinued Medications Acetaminophen (Acetaminophen 325 Mg Tab) 650 mg PO NOW ONE Stop: 04/16/21 09:06 Last Admin: 04/16/21 09:11 Dose: 650 mg Documented by: Enoxaparin Sodium (Enoxaparin 40 Mg/0.4 Ml Syringe) 40 mg SUBCUT Q24H [facility] Last Admin: 04/16/21 16:25 Dose: 40 mg Documented by: Enoxaparin Sodium (Enoxaparin 40 Mg/0.4 Ml Syringe) 40 mg SUBCUT Q12H [facility] Last Admin: 04/21/21 02:09 Dose: 40 mg Documented by: Hydromorphone HCl (Hydromorphone 1 Mg/Ml Syringe) 1 mg IVPUSH ONETIME ONE Stop: 04/16/21 09:51 Last Admin: 04/16/21 10:08 Dose: 1 mg Documented by: Cefazolin Sodium/Dextrose 1 gm (/ Premix) 50 mls @ 100 mls/hr IV ONETIME ONE Stop: 04/16/21 09:08 Last Admin: 04/16/21 09:07 Dose: 100 mls/hr Documented by: Vancomycin HCl 1,000 mg/ (Sodium Chloride) 100 mls @ 100 mls/hr IV ONETIME ONE Stop: 04/16/21 09:37 Last Admin: 04/16/21 09:51 Dose: Not Given Documented by: Vancomycin HCl 1 gm/ Sodium (Chloride) 250 mls @ 250 mls/hr IV ONETIME ONE Stop: 04/16/21 10:29 Last Admin: 04/16/21 09:41 Dose: 250 mls/hr Documented by: Lactated Ringer's (Ringers, Lactated) 1,000 mls @ 125 mls/hr IV Q8H [facility] Last Admin: 04/19/21 06:47 Dose: 125 mls/hr Documented by: Lactated Ringer's (Ringers, Lactated) 1,000 mls @ 999 mls/hr IV .BOLUS ONE Stop: 04/16/21 14:52 Last Admin: 04/16/21 15:47 Dose: 999 mls/hr Documented by: Vancomycin HCl (Vancomycin 2 Gm/400 Ml) 400 mls @ 200 mls/hr IV Q12H [facility] Last Admin: 04/16/21 21:13 Dose: Not Given Documented by: Vancomycin HCl (Vancomycin 2 Gm/400 Ml) 400 mls @ 200 mls/hr IV Q12H [facility] Last Admin: 04/16/21 21:47 Dose: 200 mls/hr Documented by: Vancomycin HCl 2 gm/ Premix 400 mls @ 200 mls/hr IV Q12H [facility] Last Admin: 04/18/21 19:20 Dose: Not Given Documented by: Vancomycin HCl 1.75 gm/ Premix 350 mls @ 175 mls/hr IV Q8H [facility] Last Admin: 04/21/21 12:25 Dose: Not Given Documented by: Iopamidol (Iopamidol 755 Mg/Ml 500 Ml Multipack Bottle) 100 ml IVPUSH ONETIME STA Stop: 04/16/21 18:41 Last Admin: 04/16/21 18:40 Dose: 100 ml Documented by: Iopamidol (Iopamidol 755 Mg/Ml 500 Ml Multipack Bottle) 100 ml IVPUSH ONETIME STA Stop: 04/20/21 19:15 Last Admin: 04/20/21 19:15 Dose: 100 ml Documented by: Morphine Sulfate (Morphine 2 Mg/Ml Syringe) 2 mg IVPUSH Q4H PRN PRN Reason: Pain Last Admin: 04/16/21 16:21 Dose: 2 mg Documented by: Oxycodone HCl (Oxycodone 5 Mg Tab) 5 mg PO Q6H PRN PRN Reason: Pain Last Admin: 04/17/21 06:15 Dose: 5 mg Documented by: Oxycodone HCl (Oxycodone 5 Mg Tab) 10 mg PO Q4H PRN PRN Reason: Pain Sodium Chloride (Sodium Chloride 0.9% 10 Ml Syringe) 10 ml FLUSH ASDIRECTED PRN PRN Reason: Keep Vein Open Last Admin: 04/16/21 09:07 Dose: 10 ml Documented by: Sodium Chloride (Sodium Chloride 0.9% 2.5 Ml Syringe) 2.5 ml FLUSH ASDIRECTED PRN PRN Reason: Keep Vein Open Last Admin: 04/16/21 08:44 Dose: 2.5 ml Documented by: Tramadol HCl (Tramadol 50 Mg Tab) 50 mg PO ONETIME ONE Stop: 04/16/21 09:06 Last Admin: 04/16/21 09:11 Dose: 50 mg Documented by:
== END 2021-04-21 18:30 | DRG 872 ==
LOC: MW.ED 08:09 → MW.MS 13:42
PROVIDERS: ADMIT Internal Medicine; ATTEND Internal Medicine
DX: A41.9 Sepsis, unspecified organism (principal); L03.113 Cellulitis of right upper limb; Z68.42 Body mass index [BMI] 45.0-49.9, adult; L02.413 Cutaneous abscess of right upper limb; E66.01 Morbid (severe) obesity due to excess calories; F19.10 Other psychoactive substance abuse, uncomplicated; Z20.822 Contact with and (suspected) exposure to COVID-19; M60.9 Myositis, unspecified; Z86.79 Personal history of other diseases of the circulatory system
CPT/HCPCS: 36415; 80048; 84703; 85025; 87040 ×2; 93971; 96365; 96375; 99285; A9270 ×2; J0690; J1170; J3370; J7050; 36410; 73201-26-RT; 73201-RT; 80202; 83605; 83735; 84100; 86140; 87070; 87205; J1650; J2270; J2543; J7120; Q9967; U0002

== ENCOUNTER 2021-05-01 03:10 | Emergency (ER) | payer MEDICAID ==
[2021-05-01] MEDS ORDERED: Bacitracin Oint 1 GM U/D Packet TOP ONE (03:36)
[2021-05-01] MEDS ORDERED: Doxycycline 100 MG Cap PO ONE (03:45)
--- NOTE | 2021-05-01 03:49 | EDM.PDOC ---
ED HPI GENERAL MEDICAL PROBLEM - General Chief Complaint: General Stated Complaint: MEDICAL CLEARANCE Time Seen by Provider: 05/01/21 03:12 Source of Information: Reports: Patient History Limitations: Reports: No Limitations - History of Present Illness INITIAL COMMENTS - FREE TEXT/NARRATIVE: Patient is a 40-year-old female presents today for medical clearance. Patient was admitted to the hospital earlier had to be transferred to [place] for a abscess to her arm involving one of the muscles most likely his bicep muscle. She was picked up today by police and brought in to be cleared. She took her wound VAC off herself a few days ago. She needs to have a dressing change. She is also still taking her antibiotics. She denies any systemic symptoms such as fever chills nausea vomiting. No increased redness to the arm. Right Arm Pain Score (Numeric/FACES): 5 - Related Data Allergies Allergy/AdvReac Type Severity Reaction Status Date / Time No Known Allergies Allergy Verified 04/18/21 05:52 Home Meds: Home Meds . [No Known Home Meds] 04/18/21 [History] Past Medical History - Past Health History Medical/Surgical History: Denies Medical/Surgical History HEENT History: Reports: None Cardiovascular History: Reports: None Respiratory History: Reports: None Gastrointestinal History: Reports: None Genitourinary History: Reports: None MEDICAL DOCTOR History: Reports: Musculoskeletal History: Reports: None Neurological History: Reports: None Psychiatric History: Reports: Anxiety, Depression Endocrine/Metabolic History: Reports: None Hematologic History: Reports: None Immunologic History: Reports: None Oncologic (Cancer) History: Reports: None Dermatologic History: Reports: Cellulitis Other Dermatologic History: Current DX cellulitis. - Infectious Disease History Infectious Disease History: Reports: None - Past Surgical History Head Surgeries/Procedures: Reports: None Cardiovascular Surgical History: Reports: None Female Surgical History: Reports: D&C Social & Family History - Family History Family Medical History: No Pertinent Family History - Caffeine Use Caffeine Use: Reports: None Other Caffeine Use: 5 daily. - Recreational Drug Use Recreational Drug Use: Yes - Living Situation & Occupation Living situation: Reports: with Family ED ROS GENERAL - Review of Systems Review Of Systems: See Below Constitutional: Reports: No Symptoms HEENT: Reports: No Symptoms Respiratory: Reports: No Symptoms Cardiovascular: Reports: No Symptoms Endocrine: Reports: No Symptoms GI/Abdominal: Reports: No Symptoms : Reports: No Symptoms Musculoskeletal: Reports: No Symptoms Skin: Reports: No Symptoms Neurological: Reports: No Symptoms Psychiatric: Reports: No Symptoms Hematologic/Lymphatic: Reports: No Symptoms Immunologic: Reports: No Symptoms ED EXAM, GENERAL - Physical Exam Exam: See Below Exam Limited By: No Limitations General Appearance: Alert, WD/WN, No Apparent Distress Head: Atraumatic Neck: Normal Inspection, Supple Respiratory/Chest: No Respiratory Distress, Lungs Clear, Normal Breath Sounds Cardiovascular: Normal Peripheral Pulses, Regular Rate, Rhythm Peripheral Pulses: 2+: Radial (L), Radial (R) Extremities: No: Normal Inspection (Right arm has sutures to the lateral side the mid bicep down to the mid forearm. Slight redness but no drainage or oozing.) Neurological: Alert, Oriented, Normal Cognition, Normal Gait Course - Vital Signs Last Recorded V/S: Last Vital Signs Temp 97.1 F 05/01/21 03:19 Pulse 101 H 05/01/21 03:19 Resp 19 05/01/21 03:19 BP 143/88 H 05/01/21 03:19 Pulse Ox 96 05/01/21 03:19 - Orders/Labs/Meds Orders: Active Orders 24 hr Category Date Time Status Doxycycline [Vibramycin] Med 05/01/21 03:45 Once 100 mg PO ONETIME ONE Meds: Medications Discontinued Medications Generic Name Dose Route Start Last Admin Trade Name Mychalq PRN Reason Stop Dose Admin Bacitracin 1 dose 05/01/21 03:36 Bacitracin Oint 1 Gm U/D Packet TOP 05/01/21 03:37 ONETIME ONE Departure - Departure Time of Disposition: 03:47 Disposition: Home, Self-Care 01 Condition: Good Clinical Impression: Medical clearance for incarceration - Discharge Information *PRESCRIPTION DRUG MONITORING PROGRAM REVIEWED*: Not Applicable *COPY OF PRESCRIPTION DRUG MONITORING REPORT IN PATIENT KEYSHAWN: Not Applicable Instructions: Medical Screening Exam Referrals: Benito Landin MD [Primary Care Provider] - Additional Instructions: The following information is given to patients seen in the emergency department who are being discharged to home. This information is to outline your options for follow-up care. We provide all patients seen in our emergency department with a follow-up referral. The need for follow-up, as well as the timing and circumstances, are variable depending upon the specifics of your emergency department visit. If you don't have a primary care physician on staff, we will provide you with a referral. We always advise you to contact your personal physician following an emergency department visit to inform them of the circumstance of the visit and for follow-up with them and/or the need for any referrals to a consulting specialist. The emergency department will also refer you to a specialist when appropriate. This referral assures that you have the opportunity for follow-up care with a specialist. All of these measure are taken in an effort to provide you with optimal care, which includes your follow-up. Under all circumstances we always encourage you to contact your private physician who remains a resource for coordinating your care. When calling for follow-up care, please make the office aware that this follow-up is from your recent emergency room visit. If for any reason you are refused follow-up, please contact the [facility] Emergency Department at and asked to speak to the emergency department charge nurse. Please follow up with your primary care physician. If you do not have a primary care physician, see below: [facility] [address] [place] [id number] [facility] [address] [place] [id number] You are seen today for medical clearance with police. You also had an abscess to your arm that is still being cared for you state you left your wound VAC at home already took off itself. We recommend he follow-up with your marketing content specialist to have the wound VAC replaced. If develop any fever chills or other symptoms please return to the ED immediately otherwise please continue to follow-up with the surgeon that performed the drainage of the abscess. Sepsis Event Note (ED) - Focused Exam Vital Signs: Vital Signs Temp Pulse Resp BP Pulse Ox 05/01/21 03:19 97.1 F 101 H 19 143/88 H 96 - My Orders Last 24 Hours: My Active Orders 05/01/21 03:45 Doxycycline [Vibramycin] 100 mg PO ONETIME ONE - Assessment/Plan Last 24 Hours: My Active Orders 05/01/21 03:45 Doxycycline [Vibramycin] 100 mg PO ONETIME ONE Plan: Patient is a 40-year-old female brought in today for medical clearance. Patient had a abscess to her right arm that had to be drained she was transferred to [place] for this this month. She was discharged antibiotics. Patient believes he is on doxycycline did not take it today. Will give a dose of doxycycline. Patient also remove the wound VAC herself we do not have access to the wound VAC here in the ER. We will wrap the arm and bacitracin and so patient states she is scheduled to see someone tomorrow to have the wound properly dressed and a wound VAC replaced. Given patient has no systemic symptoms and looks well and should be reviewed with some officers in the morning.
== END 2021-05-01 03:56 | disposition home or self-care (01) ==
LOC: MW.ED 03:10
DX: Z02.89 Encounter for other administrative examinations (principal)
CPT/HCPCS: 99283; A9270